=== PATIENT | male | born 1975 | race Caucasian/White ===

== ENCOUNTER 2020-04-21 08:57 | Outpatient (CLI) | payer OTHER, SELFPAY ==
--- NOTE | 2020-04-21 09:07 | FL_ITS ---
WS: [id number] DOUBLE CONTRAST UPPER GI EXAMINATION HISTORY: GASTRITIS, CHEST PAIN COMPARISON: None available. FLUOROSCOPY TIME: 1.5 minutes. Drug Clerk film reveals normal distribution of gas throughout the GI tract. No suspicious masses or calcif ications. Barium mixture traversed normally throughout the esophagus. No filling defects within the stomach. Du odenal bulb was normally distensible and pliable. No gastroesophageal reflux No hiatal hernia was demonstrated on this exam. FL/FL upper GI w air* [id number] IMPRESSION: Normal upper GI examination.
== END 2020-04-21 08:58 | disposition home or self-care (01) ==
LOC: RAD 09:00
PROVIDERS: PCP Family Medicine; Visit Provider Family Medicine
DX: K29.70 Gastritis, unspecified, without bleeding (principal); R07.89 Other chest pain
CPT/HCPCS: 74246

== ENCOUNTER 2020-05-09 06:55 | Outpatient (CLI) | payer OTHER, SELFPAY ==
--- NOTE | 2020-05-09 06:58 | USCV_ITS ---
Haroldo Ho Age: 45 Gender: M : 1975 Exam Date: 05/09/2020 07:21 Ordering Phys: Sony Kelly DO Technologist: ALBERT LIN Exam Location: [facility] [place] Indication: WELL ADULT EXAM HISTORY: Diameter (cm) AP x Transverse x Length Velocity (cm/s) Waveform Prox Aorta: 2.35 x 2.71 x 17.60 Mid Aorta: 1.67 x 1.85 x 77.00 Distal Aorta: 1.67 x 1.70 x 91.90 Right Iliac Prox: 1.13 x 1.02 x 59.10 Left Iliac Prox: 1.30 x 1.23 x 82.80 Stent Prox Landing x x Aneurysmal Sac Max x x Lt Lat Sac Dim Rt Lat Sac Dim Stent Dist Landing x x Right Iliac Stent x x Left Iliac Stent x x Right Renal Art Left Renal Art FINDINGS: CONCLUSIONS No evidence of abdominal aortic or bilateral iliac aneurysm. Geoffrey Marino MD (Electronically Signed) Final Date: 09 May 2020 12:46 S
== END 2020-05-09 06:56 | disposition home or self-care (01) ==
LOC: US 06:55
PROVIDERS: PCP Family Medicine; Visit Provider Family Medicine
DX: Z00.00 Encounter for general adult medical examination without abnormal findings (principal)
CPT/HCPCS: 76706

== ENCOUNTER → 2020-10-18 08:07 | Outpatient (BNVA) | payer OTHER, SELFPAY | PROVIDERS: PCP Family Medicine; Referring Provider Family Medicine; Visit Provider Internal Medicine | DX: M79.10 Myalgia, unspecified site (principal); R53.83 Other fatigue; R79.89 Other specified abnormal findings of blood chemistry; S09.90XA Unspecified injury of head, initial encounter | CPT/HCPCS: 99204 ==

== ENCOUNTER 2022-04-26 05:51 | Day surgery (SDC) | payer OTHER, SELFPAY ==
[2022-04-24 14:01] VITALS: BMI 37.7
[2022-04-26 06:09] VITALS: BP 138/116; PULSE 69; RESP 18; TEMP 36.2; O2SAT 98
[2022-04-26] MEDS: sodium chloride 0.9% 1,000 ML 30 ML IV (06:22)
--- NOTE | 2022-04-26 06:51 | W.PM.OPSUD ---
Surgery/Procedure H&P Update DATE OF PROCEDURE: April 26, 2022 DATE H&P PERFORMED: 04/16/22 H&P UPDATE INFORMATION: No changes to prior documentation PREOP DIAGNOSIS: GERD, Heartburn, belching, epigastric pain, high risk colon screening PLANNED PROCEDURE: Operation Date: 04/26/22 07:00 Proposed Procedures p EGD/colonoscopy [id number](Not Applicable) - Hitesh Arias MD s Colonoscopy(Not Applicable) - Hitesh Arias MD
--- NOTE | 2022-04-26 06:54 | ANES.PREANE2 ---
Documented by User: Chad Cade CRNA 04/26/22 06:59 Pre-Anesthetic Assessment Height/Weight: Height 1.83 m Weight 126.099 kg Temp Pulse Resp BP Pulse Ox 97.1 F L 69 18 138/116 98 04/26/22 06:09 04/26/22 06:09 04/26/22 06:09 04/26/22 06:09 04/26/22 06:09 Preop Diagnosis: GERD, Heartburn, belching, epigastric pain, high risk colon screening Operation Date: 04/26/22 07:00 Proposed Procedures p EGD/colonoscopy [id number](Not Applicable) - Hitesh Arias MD s Colonoscopy(Not Applicable) - Hitesh Arias MD Was Beta Mary Jane taken within 24 hours: N/A Was Clonidine taken within 24 hours: N/A Last intake: Intake Last Liquid Date 04/25/22 Last Liquid Time 22:30 Last Solid Date 04/24/22 Last Solid Time 21:00 Social Alcohol (2-3 beers a week) and No tobacco Exam alert, oriented x 3, clear to auscultation bilaterally and regular rate & rhythm Airway Submandibular: within normal limits Cervical ROM: within normal limits Mallampati: Class II Dentition: full Pulmonary None reported CV/HEM Hypertension None reported Hepatic None reported GI Gastroesophageal Reflux Disease Metabolic None reported Musc/skel Lower Back Pain Neuropsych Anxiety Anesthetic Plan ASA status: 2 Anesthesia: MAC Risk of > 500 ml blood loss (7ml/kg in children): No Medications/Allergies Home Medications Medication Instructions Recorded Confirmed Last Taken Type alprazolam 2 mg tablet 2 mg PO BID 10/18/20 04/26/22 04/26/22 History Allergies Allergy/AdvReac Type Severity Reaction Status Date / Time No Known Allergies Allergy Verified 04/24/22 13:57 Current Medications Generic Name Dose Route Start Last Admin Trade Name Freq PRN Reason Stop Dose Admin Sodium Chloride 1,000 mls @ 30 mls/hr 04/26/22 06:00 04/26/22 06:22 Sodium Chloride 0.9% IV 04/27/22 05:59 30 mls/hr .Q24H SON Administration PFSH Anesthesia Medical History Acute anxiety Surgical History No history of previous surgery Family History Mother Cancer Brother Diabetes Social History Smoking and tobacco status: former smoker Alcohol intake: current Alcohol intake frequency: holidays/special occasions only Lives independently: No Household members: spouse Marital status: Number of children: 3 Data Anesthesia Cardiac Studies: No Data to Display
[2022-04-26 07:35] VITALS: BP 123/83; PULSE 62; RESP 16; TEMP 36.1; O2SAT 97
[2022-04-26 08:08] VITALS: BP 125/90; PULSE 60; RESP 18; O2SAT 98
--- NOTE | 2022-04-26 09:58 | ANE.PACU2 ---
Inpatient post-anesthesia follow up: Airway intact: Yes Vital signs: Temperature 97.0 F Pulse Rate 60 Respiratory Rate 18 Blood Pressure 125/90 Pulse Oximetry 98 Oxygen Delivery Me thod Room Air Oxygen Flow Rate 3 Fraction of Inspir ed Oxygen Hydration adequate: Yes Nausea and vomiting: No Pain level: 1 Mental status: Baseline
[2022-04-29 10:06] LABS: H. Pylori / CLO Test Negative
== END 2022-04-26 08:10 | disposition home or self-care (01) ==
PROVIDERS: PCP Family Medicine; Visit Provider Surgery
PROC: 0DJ08ZZ Inspection of Upper Intestinal Tract, Via Natural or Artificial Opening Endoscopic (ICD-10-PCS; CPT 43235; principal; 2022-04-26 07:00)
PROC: 0DJD8ZZ Inspection of Lower Intestinal Tract, Via Natural or Artificial Opening Endoscopic (ICD-10-PCS; CPT 45378; 2022-04-26 07:00)
DX: Z12.11 Encounter for screening for malignant neoplasm of colon (principal); K21.9 Gastro-esophageal reflux disease without esophagitis; R14.2 Eructation; R10.13 Epigastric pain; D12.4 Benign neoplasm of descending colon; K57.30 Diverticulosis of large intestine without perforation or abscess without bleeding; K64.8 Other hemorrhoids; K29.70 Gastritis, unspecified, without bleeding; I10 Essential (primary) hypertension; F41.9 Anxiety disorder, unspecified; Z87.891 Personal history of nicotine dependence
CPT/HCPCS: 43239; 45385; 87077; 88305; J2704; J7030

== ENCOUNTER → 2023-05-21 09:05 | Outpatient (BNVA) | payer OTHER, SELFPAY | PROVIDERS: PCP Family Medicine; Visit Provider Family Medicine | DX: Z00.00 Encounter for general adult medical examination without abnormal findings (principal) | CPT/HCPCS: 80053; 80061 ==

== ENCOUNTER 2023-06-03 06:50 | Outpatient (CLI) | payer OTHER, SELFPAY ==
--- NOTE | 2023-06-03 07:00 | US_ITS ---
WS: [id number] ULTRASOUND ABDOMEN LIMITED CLINICAL INFORMATION: concern for gallbladder disease COMPARISON: None. FINDINGS: Liver Size: Enlarged Craniocaudal length: 17.7 cm. Echogenicity: Coarse with fatty infiltration Surface nodularity: None. Mass (size and location): None. Bile ducts Intrahepatic ducts: Normal. Common bile duct diameter: 0.3 cm. Gallbladder Normal. Gallstones: None. Gallbladder sludge: None. Gallbladder wall thickening: None. Pericholecystic fluid: None. Sonographic Lane sign: Absent. Pancreas Normal as visualized. Right kidney: Normal. Hydronephrosis: None. Size: 13.0 cm x 5.8 cm x 5.3 cm. Abdominal aorta and IVC Visualized portions are normal. Ascites: None. US/US abdomen limited [id number] IMPRESSION: 1. Hepatomegaly with Diffuse fatty infiltration liver. 2. Normal gallbladder. 3. No hydronephrosis in RIGHT kidney.
== END 2023-06-03 06:51 | disposition home or self-care (01) ==
PROVIDERS: PCP Family Medicine; Visit Provider Family Medicine
DX: R07.89 Other chest pain (principal); R14.2 Eructation; K76.0 Fatty (change of) liver, not elsewhere classified; R16.0 Hepatomegaly, not elsewhere classified
CPT/HCPCS: 76705

== ENCOUNTER 2023-07-14 07:52 | Outpatient (CLI) | payer OTHER, SELFPAY ==
--- NOTE | 2023-07-14 08:03 | XRR_ITS ---
PROCEDURE INFORMATION: Exam: XR Left Shoulder Exam date and time: 07/14/2023 8:06 AM Age: 48 years old Clinical indication: Patient HX: Left shoulder pain x 2 weeks. PT states he has a knot on shoulder. Shoulder catches TECHNIQUE: Imaging protocol: Radiologic exam of the left shoulder. Views: 2 or more views. Total images: 1 COMPARISON: No relevant prior studies available. FINDINGS: Bones/joints: Deformity distal left clavicle with superior osteophyte formation felt to represent sequela of remote trauma. No acute fracture nor subluxation. No osseous erosion nor periosteal reaction. Soft tissues: Normal. XR/XR shoulder LT min 2V* [id number] IMPRESSION: 1. Deformity distal left clavicle with superior osteophyte formation felt to represent sequela of remote trauma. 2. No acute osseous pathology.
== END 2023-07-14 07:53 | disposition home or self-care (01) ==
PROVIDERS: PCP Family Medicine; Visit Provider Family Medicine
DX: M25.712 Osteophyte, left shoulder (principal); M25.512 Pain in left shoulder
CPT/HCPCS: 73030

== ENCOUNTER → 2023-08-19 08:15 | Outpatient (BNVA) | payer OTHER, SELFPAY | PROVIDERS: PCP Family Medicine; Referring Provider Family Medicine; Visit Provider Student in an Organized Health Care Education/Training Program | DX: M75.42 Impingement syndrome of left shoulder | CPT/HCPCS: 73030 ==

== ENCOUNTER 2025-02-01 10:54 | Outpatient (CLI) | payer SELFPAY ==
--- NOTE | 2025-02-01 10:29 | ECG_ITS ---
[facility]: 2025-[facility]01 Pat Name: Haroldo Ho Department: Room: Gender: Male Director Telehealth: : 1975 Requested By: Roge Rivero Order Number: [id number] Maya MD: Bennett Soriano M.D. Interpretive Statements EXERCISE STRESS TEST EXERCISE DATA: The patient was exercised by Reji protocol. Baseline heart rate was 77 beats per minute. Baseline blood pressure was 128/93 millimeters of mercury. Maximal predicted heart rate was 173 beats per minute. Maximum heart rate achieved was 164 which was 94% of the maximum predicted heart rate. Maximum blood pressure was 202/96 millimeters of mercury. Total exercise time was 9 minutes and 30 seconds. Maximum METs achieved was 13.5. The reason for ending the test was maximal effort achieved. The patient complained of shortness of breath during the stress test, which then resolved at the end of the test. ELECTROCARDIOGRAM: BASELINE: Showed sinus rhythm, normal axis, no significant ST-T changes at the baseline noted. [] EXERCISE: At the peak exercise level, [] No significant ST-T changes suggestive of ischemia noted. [] RECOVERY: During the recovery period, heart rate dropped appropriately. No significant ST-T changes in the recovery suggestive of ischemia noted. [] CONCLUSION: 1. Exercise capacity is excellent 2. Heart rate response was appropriate 3. Blood pressure response was appropriate 4. Symptoms not suggestive of ischemia. 5. Stress test does not indicate ischemia Electronically Signed On 02-13-2025 02:07:04 CDT by Bennett Soriano M.D. [email or web address]
[2025-02-01 10:59] VITALS: BMI 37.3
[2025-02-01 11:30] VITALS: BP 141/92; PULSE 91
== END 2025-02-01 10:55 | disposition home or self-care (01) ==
LOC: CDL 10:55
PROVIDERS: PCP Electrodiagnostic Medicine; Visit Provider Electrodiagnostic Medicine
DX: R07.9 Chest pain, unspecified (principal)
CPT/HCPCS: 93017

== ENCOUNTER 2025-06-10 14:15 | Oncology outpatient (recurring) (ONCR) | payer SELFPAY ==
--- NOTE | 2025-06-10 14:15 | CTR_ITS ---
PROCEDURE INFORMATION: Exam: CT Chest With Contrast; Diagnostic Exam date and time: 06/10/2025 2:03 PM Age: 50 years old Clinical indication: Splenomegaly; Abnormal labs TECHNIQUE: Imaging protocol: Diagnostic computed tomography of the chest with contrast. Radiation optimization: All CT scans at this facility use at least one of these dose optimization techniques: automated exposure control; mA and/or kV adjustment per patient size (includes targeted exams where dose is matched to clinical indication); or iterative reconstruction. Contrast material: OMNI 350; Contrast volume: 100 ml; Contrast route: INTRAVENOUS (IV); COMPARISON: CR XR shoulder LT min 2V* [id number] 08/19/2023 8:32 AM RADIATION DOSE METRICS: Total DLP (mGy-cm): 1555.11 FINDINGS: Lungs: Unremarkable. No consolidation. No masses. Pleural spaces: Unremarkable. No pneumothorax. No pleural effusion. Heart: Unremarkable. No cardiomegaly. No pericardial effusion. Lymph nodes: Unremarkable. No enlarged lymph nodes. Vasculature: Unremarkable. No aortic aneurysm. Bones/joints: Unremarkable. No acute fracture. Soft tissues: Unremarkable. No evidence of malignancy. PROCEDURE INFORMATION: Exam: CT Abdomen And Pelvis With Contrast Exam date and time: 06/10/2025 2:03 PM Age: 50 years old Clinical indication: Splenomegaly; Abnormal labs TECHNIQUE: Imaging protocol: Computed tomography of the abdomen and pelvis with contrast. Radiation optimization: All CT scans at this facility use at least one of these dose optimization techniques: automated exposure control; mA and/or kV adjustment per patient size (includes targeted exams where dose is matched to clinical indication); or iterative reconstruction. Contrast material: OMNI 350; Contrast volume: 100 ml; Contrast route: INTRAVENOUS (IV); COMPARISON: abdomen limited [id number] 06/03/2023 7:03 AM RADIATION DOSE METRICS: Total DLP (mGy-cm): 1555.11 FINDINGS: Liver: Normal. No mass. Gallbladder and biliary ducts: Normal. No calcified stones. No ductal dilation. Pancreas: Normal. No ductal dilation. Spleen: Severe nonspecific splenomegaly. Craniocaudal dimension the spleen 28 cm. Inferior largest spleen extends below the left kidney. Adrenal glands: Normal. No mass. Kidneys and ureters: Normal. No hydronephrosis. Stomach and bowel: Unremarkable. No obstruction. No mucosal thickening. Appendix: No evidence of appendicitis. Intraperitoneal space: Unremarkable. No free air. No significant fluid collection. Vasculature: Unremarkable. No abdominal aortic aneurysm. Lymph nodes: Unremarkable. No enlarged lymph nodes. Urinary bladder: Unremarkable as visualized. Reproductive: Unremarkable as visualized. Bones/joints: Unremarkable. No acute fracture. Soft tissues: Unremarkable. CT/CT chest abdpel w/*[id number] IMPRESSION: No acute findings. IMPRESSION: 2. Severe nonspecific splenomegaly. The differential diagnosis is extensive and includes infectious, neoplastic, and infiltrative processes. Please correlate clinically. 3. No acute findings. Otherwise normal exam.
[2025-06-10] MEDS: iohexol 350 mg/mL 500 mL Btl (per mL) PO (14:17)
[2025-06-10] MEDS: iohexol 350 mg/mL 500 mL Btl (per mL) IV (14:17)
== END 2025-06-23 23:59 | disposition home or self-care (01) ==
LOC: RAD 06-11 00:01 → ONCMED 06-13 09:22
PROVIDERS: PCP Electrodiagnostic Medicine; Visit Provider Internal Medicine Medical Oncology
DX: Z53.9 Procedure and treatment not carried out, unspecified reason; R16.1 Splenomegaly, not elsewhere classified; D69.6 Thrombocytopenia, unspecified; D70.9 Neutropenia, unspecified
CPT/HCPCS: 71260; 74177

== ENCOUNTER 2025-07-22 07:57 | Oncology outpatient (recurring) (ONCR) | payer SELFPAY ==
[2025-07-18 08:32] LABS: Hematocrit 41.4 % (37-53); Hemoglobin 14.30 g/dL (11.27-16.99); Mean Corpuscular HGB Conc 34.5 g/dL (30-55); Mean Corpuscular Hemoglobin 32.3 pg (27-33); Mean Corpuscular Volume 93.5 fl (82-101); Nucleated Red Blood Cells % 0 %; Platelet Count 58 10^3/cmm (157-399); Red Blood Count 4.43 10^6/uL (3.85-5.65); White Blood Count 2.29 10^3/uL (3.29-11.43)
[2025-07-18 09:01] LABS: Alanine Aminotransferase 15 U/L (0-41); Albumin Level 4.3 g/dL (3.5-5.2); Alkaline Phosphatase 50 U/L (40-130); Blood Urea Nitrogen 12 mg/dL (6-20); Calcium 9.3 mg/dL (8.5-10.5); Carbon Dioxide 24 mmol/L (22-29); Chloride 102 mmol/L (98-107); Creatinine Clr Calc Pharmacy 149.7134; Globulin 3.5 g/dL (1.3-4.6); Glucose 114 mg/dL (65-115); Osmolality Calculated 289 mOsm/kg (285-295); Sodium 139 mmol/L (136-145); Total Protein 7.8 g/dL (6.6-8.7)
[2025-07-18 09:05] LABS: Anion Gap 17.9 (5-19); Aspartate Amino Transferase 30 U/L (0-40); Potassium 4.9 mmol/L (3.5-5.1)
[2025-07-18 09:41] LABS: Slide Review Slide Review Perform
[2025-07-18 11:29] VITALS: BP 134/94; PULSE 78; RESP 18; TEMP 36.8; O2SAT 93
[2025-07-18] MEDS: CLADRIBINE IV (11:33)
[2025-07-18] MEDS: SODIUM CHLORIDE 0.9% IV (11:33)
[2025-07-18 13:45] VITALS: BP 144/79; PULSE 86; RESP 17; TEMP 36.6; O2SAT 96
[2025-07-19 12:52] VITALS: BP 125/87; PULSE 82; RESP 17; TEMP 36.7; O2SAT 96
[2025-07-19] MEDS: SODIUM CHLORIDE 0.9% IV (13:06)
[2025-07-19] MEDS: CLADRIBINE IV (13:06)
[2025-07-19 15:24] VITALS: BP 138/93; PULSE 88; TEMP 36.7; O2SAT 96
[2025-07-20 09:09] LABS: Hematocrit 38.3 % (37-53); Hemoglobin 13.30 g/dL (11.27-16.99); Mean Corpuscular HGB Conc 34.7 g/dL (30-55); Mean Corpuscular Hemoglobin 32.1 pg (27-33); Mean Corpuscular Volume 92.5 fl (82-101); Platelet Count 48 10^3/cmm (157-399); Red Blood Count 4.14 10^6/uL (3.85-5.65); White Blood Count 1.25 10^3/uL (3.29-11.43)
[2025-07-20 09:29] LABS: Alanine Aminotransferase 16 U/L (0-41); Albumin Level 4.0 g/dL (3.5-5.2); Alkaline Phosphatase 52 U/L (40-130); Anion Gap 14.3 (5-19); Aspartate Amino Transferase 20 U/L (0-40); Blood Urea Nitrogen 10 mg/dL (6-20); Calcium 8.8 mg/dL (8.5-10.5); Carbon Dioxide 24 mmol/L (22-29); Chloride 97 mmol/L (98-107); Creatinine Clr Calc Pharmacy 133.0786; Globulin 3.6 g/dL (1.3-4.6); Glucose 135 mg/dL (65-115); Osmolality Calculated 273 mOsm/kg (285-295); Potassium 4.3 mmol/L (3.5-5.1); Sodium 131 mmol/L (136-145); Total Protein 7.6 g/dL (6.6-8.7)
[2025-07-20 09:47] LABS: Absolute Segmented Neutrophil 0.6 10/cmm (1.6-7.1); Atypical Lymphs 25.0 % (0-5); Band Neutrophils Absolute 0.0 10^3/cmm (0.0-1.2); Slide Review Slide Review Perform; Total Cells Counted 100 (0-100)
[2025-07-20] MEDS: CLADRIBINE IV (09:54)
[2025-07-20] MEDS: SODIUM CHLORIDE 0.9% IV (09:54)
[2025-07-20 10:09] VITALS: BP 131/84; PULSE 96; TEMP 36.2; O2SAT 96
[2025-07-20 12:17] VITALS: BP 110/71; PULSE 84; RESP 18; TEMP 36.4; O2SAT 97
[2025-07-21 09:02] VITALS: BP 117/80; PULSE 94; TEMP 36.6; O2SAT 99
[2025-07-21] MEDS: SODIUM CHLORIDE 0.9% IV (09:32)
[2025-07-21] MEDS: CLADRIBINE IV (09:32)
[2025-07-21 11:55] VITALS: BP 127/73; PULSE 92; RESP 17; TEMP 37.1; O2SAT 100
[2025-07-22 08:38] LABS: Hematocrit 37.2 % (37-53); Hemoglobin 12.50 g/dL (11.27-16.99); Mean Corpuscular HGB Conc 33.6 g/dL (30-55); Mean Corpuscular Hemoglobin 31.4 pg (27-33); Mean Corpuscular Volume 93.5 fl (82-101); Nucleated Red Blood Cells % 0 %; Platelet Count 55 10^3/cmm (157-399); Red Blood Count 3.98 10^6/uL (3.85-5.65)
[2025-07-22 08:41] VITALS: BP 121/80; PULSE 85; TEMP 36.3; O2SAT 97
[2025-07-22 08:57] LABS: Alanine Aminotransferase 16 U/L (0-41); Albumin Level 4.0 g/dL (3.5-5.2); Alkaline Phosphatase 50 U/L (40-130); Anion Gap 15.6 (5-19); Aspartate Amino Transferase 29 U/L (0-40); Blood Urea Nitrogen 16 mg/dL (6-20); Calcium 8.5 mg/dL (8.5-10.5); Carbon Dioxide 25 mmol/L (22-29); Chloride 96 mmol/L (98-107); Creatinine Clr Calc Pharmacy 119.7707; Globulin 3.9 g/dL (1.3-4.6); Glucose 138 mg/dL (65-115); Osmolality Calculated 277 mOsm/kg (285-295); Potassium 4.6 mmol/L (3.5-5.1); Sodium 132 mmol/L (136-145); Total Protein 7.9 g/dL (6.6-8.7)
[2025-07-22] MEDS: SODIUM CHLORIDE 0.9% IV (09:03)
[2025-07-22] MEDS: CLADRIBINE IV (09:03)
[2025-07-22 09:12] LABS: Slide Review Slide Review Perform
[2025-07-22 09:13] LABS: White Blood Count 0.37 10^3/uL (3.29-11.43)
[2025-07-22 11:55] VITALS: BP 120/78; PULSE 72; TEMP 35.7; O2SAT 97
== END 2025-07-24 23:59 | disposition home or self-care (01) ==
PROVIDERS: Internal Medicine Medical Oncology; Nurse Practitioner Family; PCP Electrodiagnostic Medicine; Visit Provider Internal Medicine
DX: Z51.11 Encounter for antineoplastic chemotherapy (principal); C91.40 Hairy cell leukemia not having achieved remission; Z79.899 Other long term (current) drug therapy
CPT/HCPCS: 36415; 80053; 85007; 85025; 96375; 96413; 96415; J7040; J7050; J9065; J9999; Q0162

== ENCOUNTER 2025-07-25 10:11 | Inpatient (IN) | payer SELFPAY ==
[2025-07-25 10:16] VITALS: BP 144/92; PULSE 106; RESP 16; TEMP 36.7; O2SAT 93; BMI 33.2
--- NOTE | 2025-07-25 10:19 | CTR_ITS ---
PROCEDURE INFORMATION: Exam: CT Abdomen And Pelvis With Contrast Exam date and time: 07/25/2025 10:32 AM Age: 50 years old Clinical indication: Abdominal pain; Localized; Lower; Leukemia; Additional info: Abd pain TECHNIQUE: Imaging protocol: Computed tomography of the abdomen and pelvis with contrast. Radiation optimization: All CT scans at this facility use at least one of these dose optimization techniques: automated exposure control; mA and/or kV adjustment per patient size (includes targeted exams where dose is matched to clinical indication); or iterative reconstruction. Contrast material: OMNI 350; Contrast volume: 100 ml; Contrast route: INTRAVENOUS (IV); COMPARISON: CT chest abdpel w/*[id number] 10/06/2025 14:03 RADIATION DOSE METRICS: Total DLP (mGy-cm): 1060.43 FINDINGS: Lungs: Lung bases are clear. Liver: Normal. No mass. Gallbladder and biliary ducts: Normal. No calcified stones. No ductal dilation. Pancreas: Normal. No ductal dilation. Spleen: Marked splenomegaly. The spleen measures 22.1 cm in length. Adrenal glands: Normal. No mass. Kidneys and ureters: Normal. No hydronephrosis. Stomach and bowel: Distal jejunum versus proximal ileal focal small bowel wall thickening in the mid abdomen with marked adjacent mesenteric inflammatory changes no evidence for adjacent air bubbles to suggest perforation. No obstruction. Mesenteric vessels appear well opacified as visualized. Appendix: Normal appendix. Intraperitoneal space: No free fluid in the pelvis. Vasculature: Minimal calcification of the abdominal aorta and left iliac artery. Lymph nodes: No enlarged lymphadenopathy. Urinary bladder: Unremarkable as visualized. Reproductive: Unremarkable as visualized. Bones/joints: Degenerative changes of the thoracolumbar spine with L4-L5 disc space narrowing. Soft tissues: Unremarkable. CT/CT abdomen pelvis w con* [id number] IMPRESSION: 1. Marked splenomegaly. 2. Distal jejunum versus proximal ileal focal small bowel wall thickening in the mid abdomen with marked adjacent mesenteric inflammatory changes no evidence for adjacent air bubbles to suggest perforation. No obstruction. Infiltrative process related to patient's underlying leukemia versus infectious or ischemic process is questioned. No rim enhancing abscess. 3. Disc space narrowing at L4-L5.
--- NOTE | 2025-07-25 10:21 | ED_ITS ---
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 States also had some nausea and vomiting he denies any diarrhea denies any dysuria he denies any worse improving factors Associated Symptoms: Reports nausea and vomiting; Denies chills, diarrhea, dysuria and fever(s) Related Data Home Medications ?Medication ?Instructions ?Recorded ?Confirmed cholecalciferol (vitamin D3) 25 25 mcg PO DAILY 07/25/25 mcg (1,000 unit) capsule cyanocobalamin (vitamin B-12) 1,000 mcg PO DAILY 06/0607/25/25 1,000 mcg capsule cyclobenzaprine 10 mg tablet 10 mg PO TID PRN Spasms 0 06/06/25 07/25/25 omeprazole 40 mg capsule,delayed 40 mg PO DAILY PRN Ac id Reflux 06/06/25 07/25/25 release levofloxacin 500 mg tablet 500 mg PO DAILY PRN fever/i nfection 07/25/25 07/25/25 sulfamethoxazole 800 1 tab PO .MON, WED, FRI infe ction 07/25/25 07/25/25 mg-trimethoprim 160 mg tablet prevention (Bactrim DS) Previous Rx's ?Medication ?Instructions ?Recorded alprazolam 0.5 mg tablet 0.5 mg PO BID PRN anxiety #3 0 tabs 02/13/24 fluconazole 100 mg tablet 100 mg PO DAILY fungal infec tion 07/13/25 prevention #90 tabs ondansetron HCl 4 mg tablet 4 mg PO Q6H PRN nausea and 07/13/25 vomiting #30 tabs prochlorperazine maleate 10 mg 10 mg PO Q4H PRN mild n ausea #30 07/13/25 tablet (Compazine) tabs valacyclovir 500 mg tablet 500 mg PO BID #60 tabs 06/25 oxycodone-acetaminophen 5 mg-325 1 tab PO TID PRN pain 7 days #21 07/19/25 mg tablet tabs Allergies Allergy/AdvReac Type Severity Reaction Status Date / Time No Known Allergies Allergy Verified 07/18/25 08:40 Review of Systems 2 Const: Denies: fever(s), chills, body aches or change in appetite ENMT: Denies: throat pain or dental pain Card: Denies: chest pain Resp: Denies: dyspnea GI: Reports: abdominal pain, nausea and vomiting; Denies: diarrhea : Denies: dysuria Musc: Denies: neck pain or back pain Skin/Breast: Denies: rash Neuro: Denies: headache(s) PFSH ED 2 PFSH: Medical History Anxiety Surgical History No history of previous surgery Family History Mother , colon cancer Cancer colon Brother Diabetes Father CAD (coronary artery disease) Social History Smoking and tobacco/nicotine status: never used tobacco/nicotine Alcohol intake: current Alcohol intake frequency: 0-2 Drinks per Day Substance/Drug Use: never Lives independently: Yes Household members: spouse and children Marital status: Number of children: 3 Current occupational status: employed Current occupation: [employer], construction driver Constance/Shinto: Confucianism Special constance needs: No Agree to transfusion: Yes Physical Exam 2 Const: COMMON NORMALS: no acute distress, patient oriented x3 and healthy appearing HENMT: COMMON NORMALS: normocephalic and atraumatic HEAD & SCALP: n ormocephalic and atraumatic Eye: COMMON NORMALS: conjunctivae normal CONJUNCTIVA: Yes conjunctivae normal Neck/C-Spine: COMMON NORMALS: full ROM and supple Chest: COMMONS NORMALS: normal inspection of the chest Resp: COMMON NORMALS: normal respiratory effort, No retractions, No use of accessory muscles and clear to auscultation bilaterally AUSCULTATION: clear to auscultation bilaterally Cardio: COMMON NORMALS: regular rate, regular rhythm and No murmurs present (Cardio) RATE: regular rate RHYTHM: regular rhythm GI: COMMON NORMALS: Normal to inspection, nondistended, normoactive bowel sounds present, Soft to palpation and no masses PALPATION: Yes Soft to palpation OTHER: lower abd tenderness Extremity: COMMON NORMALS: normal to inspection and full ROM Neuro: COMMON NORMALS: patient oriented x3, moves all extremities and no focal motor deficits Psych: COMMON NORMALS: mental status grossly normal, Normal thought process present and cooperative THOUGHT PROCESS: Normal thought process present Skin: COMMON NORMALS: no rashes or lesions noted and no wounds GENERAL SKIN EXAM: no rashes or lesions noted Course 2 Vital Signs: Vital signs: Vital Signs Temperature 98.0 F 07/25/25 10:16 Pulse Rate 100 07/25/25 12:03 Respiratory Rate 16 07/25/25 10:16 Blood Pressure 133/95 07/25/25 12:03 Pulse Oximetry 98 07/25/25 12:03 Oxygen Delivery Me thod Room Air 07/25/25 12:03 MDM - Abdominal Pain Medical Decision Making Patient presents here with abdominal pain he is also found to have some mild hyponatremia he is also leukopenic likely from his chemo. CT did show area of inflammation around the jejunum could be chemo induced but did speak to the hospitalist and surgeon on-call and will admit at this time for possible infectious origin we will start him on Cipro Flagyl his pain is improved here his lactate is normal no signs of ischemic bowel Medical Records I reviewed the patient's medical records. Lab Data I reviewed the patient's lab results. 07/25/25 10:33 07/25/25 10:33 Labs/Radiology: Radiology Impressions Abdomen/Pelvis CT 07/25/25 10:19 IMPRESSION: 1. Marked splenomegaly. 2. Distal jejunum versus proximal ileal focal small bowel wall thickening in the mid abdomen with marked adjacent mesenteric inflammatory changes no evidence for adjacent air bubbles to suggest perforation. No obstruction. Infiltrative process related to patient's underlying leukemia versus infectious or ischemic process is questioned. No rim enhancing abscess. 3. Disc space narrowing at L4-L5. ADDENDUM: 07/25/25 1110 COMMENT: THIS REPORT CONTAINS FINDINGS THAT MAY BE CRITICAL TO PATIENT CARE. The exam findings were verbally communicated by me to Yue Brumfield, physician's optometric assistant, via telephone conference at 11:08 AM CDT on 07/25/2025. The findings were acknowledged and understood. Laboratory Results WBC 0.33 10^3/uL (3.29-11.43) L* 07/25/25 10:33 RBC 4.41 10^6/uL (3.85-5.65) 07/25/25 10:33 Hgb 13.80 g/dL (11.27-16.99) 07/25/25 10:33 Hct 39.1 % (37-53) 07/25/25 10:33 MCV 88.7 fl (82-101) 07/25/25 10:33 MCH 31.3 pg (27-33) 07/25/25 10:33 MCHC 35.3 g/dL (30-55) 07/25/25 10:33 RDW 13.4 % (12.1-15.1) 07/25/25 10:33 Plt Count 63 10^3/cmm (157-399) L 07/25/25 10:33 MPV 9.8 fL (7.4-10.4) 07/25/25 10:33 Lymph % (Auto) Not Reportable 07/25/25 10:33 [place] % (Auto) Not Reportable 07/25/25 10:33 Neut # (Auto) Not Reportable 07/25/25 10:33 Lymph # (Auto) Not Reportable 07/25/25 10:33 [place] # (Auto) Not Reportable 07/25/25 10:33 Total Counted 50 (0-100) 07/25/25 10:33 Atypical Lymphs % 8.0 % (0-5) H 07/25/25 10:33 Segmented Neutrophils 12 % 07/25/25 10:33 Band Neutrophils Not Reportable 07/25/25 10:33 Absolute Lymphocytes 0.1 10^3/cmm (1.2-3.4) L 07/25/25 10:33 Lymphocytes (Manual) 28 % 07/25/25 10:33 Monocytes (Manual) 0.0 % 07/25/25 10:33 Absolute Monocytes 0.0 10^3/cmm (0.1-0.6) L 07/25/25 10:33 Eosinophils (Manual) 2 % 07/25/25 10:33 Absolute Eosinophils 0.0 10^3/cmm (0.0-0.7) 07/25/25 10:33 Basophils (Manual) 0.0 % 07/25/25 10:33 Absolute Basophils 0.0 10^3/cmm (0.0-0.2) 07/25/25 10:33 Platelet Estimate Decreased (Normal) 07/25/25 10:33 Sodium 127 mmol/L (136-145) L 07/25/25 10:33 Potassium 4.8 mmol/L (3.5-5.1) 07/25/25 10:33 Chloride 92 mmol/L (98-107) L 07/25/25 10:33 Carbon Dioxide 20 mmol/L (22-29) L 07/25/25 10:33 Anion Gap 19.8 (5-19) H 07/25/25 10:33 BUN 13 mg/dL (6-20) 07/25/25 10:33 Creatinine 0.9 mg/dL (0.7-1.2) 07/25/25 10:33 GFR Calculation 90.1 mL/min (90-130) 07/25/25 10:33 Glucose 138 mg/dL (65-115) H 07/25/25 10:33 Calculated Osmolality 266 mOsm/kg (285-295) L 07/25/25 10:33 Lactic Acid 0.9 mmol/L (0.5-2.2) 07/25/25 10:27 Calcium 8.8 mg/dL (8.5-10.5) 07/25/25 10:33 Total Bilirubin 2.0 mg/dL (0.15-1.2) H 07/25/25 10:33 AST 27 U/L (0-40) 07/25/25 10:33 ALT 21 U/L (0-41) 07/25/25 10:33 Alkaline Phosphatase 49 U/L (40-130) 07/25/25 10:33 Total Protein 7.9 g/dL (6.6-8.7) 07/25/25 10:33 Albumin 3.7 g/dL (3.5-5.2) 07/25/25 10:33 Globulin 4.2 g/dL (1.3-4.6) 07/25/25 10:33 Lipase 38 U/L (13-60) 07/25/25 10:33 Amorphous Sediment Not Reportable 07/25/25 12:01 All radiology interpretation(s) finalized by discharge Discharge Plan Discharge Patient Disposition: Admitted As Inpatient Clinical Impression: Abdominal pain, Hyponatremia, Leukopenia Condition: Stable Coding Level of Care Code ED Surveillance Analyst for Nini Stuart
[2025-07-25] MEDS: HYDROmorphone 0.5 MG/0.5 ML INJ 1 MG IVP ×3 (10:31→18:02)
[2025-07-25] MEDS: ondansetron 2 mg/ML SDV 2 mL 4 MG IVP ×2 (10:31→20:03)
[2025-07-25] MEDS: iohexol 350 mg/mL 500 mL Btl (per mL) IV (10:36)
[2025-07-25 10:41] LABS: Hematocrit 39.1 % (37-53); Hemoglobin 13.80 g/dL (11.27-16.99); Mean Corpuscular HGB Conc 35.3 g/dL (30-55); Mean Corpuscular Hemoglobin 31.3 pg (27-33); Mean Corpuscular Volume 88.7 fl (82-101); Platelet Count 63 10^3/cmm (157-399); Red Blood Count 4.41 10^6/uL (3.85-5.65)
[2025-07-25 10:58] LABS: Alanine Aminotransferase 21 U/L (0-41); Albumin Level 3.7 g/dL (3.5-5.2); Alkaline Phosphatase 49 U/L (40-130); Anion Gap 19.8 (5-19); Aspartate Amino Transferase 27 U/L (0-40); Blood Urea Nitrogen 13 mg/dL (6-20); Calcium 8.8 mg/dL (8.5-10.5); Carbon Dioxide 20 mmol/L (22-29); Chloride 92 mmol/L (98-107); Creatinine Clr Calc Pharmacy 129.2146; Globulin 4.2 g/dL (1.3-4.6); Glucose 138 mg/dL (65-115); Lipase 38 U/L (13-60); Osmolality Calculated 266 mOsm/kg (285-295); Potassium 4.8 mmol/L (3.5-5.1); Sodium 127 mmol/L (136-145); Total Protein 7.9 g/dL (6.6-8.7)
--- NOTE | 2025-07-25 11:12 | PC.PHAR ---
Addendum entered by Pooja Lee 07/25/25 11:16: Pt is taking his chemotherapy in the office. Original Note: Pt has orders for [place] 5-325mg tid prn and Tramadol 50mg tid prn from 07/19/25. They were not filled and new order for Percocet was filled. This is the current pain therapy. Pt has Metoprolol Tartrate 50mg bid from 05/06/25 90ds-pt states he stopped taking this medication.
[2025-07-25 11:29] LABS: Lactic Sepsis W/Reflex 0.9 mmol/L (0.5-2.2)
[2025-07-25 11:57] LABS: Slide Review Slide Review Perform
[2025-07-25 11:58] LABS: Absolute Segmented Neutrophil 0.0 10/cmm (1.6-7.1); Total Cells Counted 50 (0-100)
[2025-07-25 11:59] LABS: Atypical Lymphs 8.0 % (0-5)
[2025-07-25 12:03] VITALS: BP 133/95; PULSE 100; O2SAT 98
[2025-07-25 12:04] LABS: White Blood Count 0.33 10^3/uL (3.29-11.43)
[2025-07-25 12:07] LABS: Glucose Urine UA Negative (Normal); Nitrate Urine Negative (Negative)
[2025-07-25 12:12] LABS: Add Urine Microscopic? YES
[2025-07-25 12:48] LABS: Specific Gravity, Urine 1.063 (1.005-1.030)
[2025-07-25 12:53] VITALS: BP 143/104; PULSE 107; O2SAT 100
--- NOTE | 2025-07-25 12:53 | P.CONIM_ITS ---
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 He finished his therapy on Friday since then he has been having severe abdominal pain that has been worsening over time. Had diarrhea on Friday and today he has an episode of vomiting. Pain is in the mid abdomen and radiates to the back. Imaging done in the ER showed evidence of a short segment of a small bowel in the distal jejunum that appears extremely thick dilated and with mesenteric fat stranding but without evidence of perforation raising the concern of possible infectious, ischemic or neoplastic origin. In addition he is white count is 0.3, he has thrombocytopenia and hyponatremia. I was consulted for the findings. Review of Systems 2 General: Reports: 10 or more systems reviewed and unremarkable except in HPI and below Medications/Allergies Home Medications ?Medication ?Instructions ?Recorded ?Confirmed ?Last Taken ?Type alprazolam 0.5 mg tablet 0.5 mg PO BID PRN anxiety #3 0 tabs 02/13/24 07/25/25 Unknown Rx cholecalciferol (vitamin D3) 25 25 mcg PO DAILY 07/25/25 07/24/25 History mcg (1,000 unit) capsule cyanocobalamin (vitamin B-12) 1,000 mcg PO DAILY 06/0607/25/25 07/24/25 History 1,000 mcg capsule cyclobenzaprine 10 mg tablet 10 mg PO TID PRN Spasms 0 06/06/25 07/25/25 Unknown History omeprazole 40 mg capsule,delayed 40 mg PO DAILY PRN Ac id Reflux 06/06/25 07/25/25 Unknown History release fluconazole 100 mg tablet 100 mg PO DAILY fungal infec tion 07/13/25 07/25/25 07/24/25 Rx prevention #90 tabs ondansetron HCl 4 mg tablet 4 mg PO Q6H PRN nausea and 07/13/25 07/25/25 Unknown Rx vomiting #30 tabs prochlorperazine maleate 10 mg 10 mg PO Q4H PRN mild n ausea #30 07/13/25 07/25/25 07/25/25 Rx tablet (Compazine) tabs valacyclovir 500 mg tablet 500 mg PO BID #60 tabs 06/2507/25/25 07/24/25 Rx oxycodone-acetaminophen 5 mg-325 1 tab PO TID PRN pain 7 days #21 07/19/25 07/25/25 07/25/25 Rx mg tablet tabs levofloxacin 500 mg tablet 500 mg PO DAILY PRN fever/i nfection 07/25/25 07/25/25 Unknown History sulfamethoxazole 800 1 tab PO .MON, WED, FRI infe ction 07/25/25 07/25/25 07/22/25 History mg-trimethoprim 160 mg tablet prevention (Bactrim DS) Allergies Allergy/AdvReac Type Severity Reaction Status Date / Time No Known Allergies Allergy Verified 07/18/25 08:40 Current Medications Generic Name Dose Route Start Last Admin Trade Name Freq PRN Reason Stop Dose Admin Ciprofloxacin/Dextrose 400 mg in 200 mls @ 200 mls/hr 07/25/25 12:19 07/25/25 12:31 Cipro IV 07/25/25 13:18 200 mls/hr ONCE ONE Administration Protocol PFSH Acute 2 PFSH: Medical History (Updated 07/25/25 @ 13:01 by Selwyn Joaquin MD) Anxiety Surgical History No history of previous surgery Family History Mother , colon cancer Cancer colon Brother Diabetes Father CAD (coronary artery disease) Social History Smoking and tobacco/nicotine status: never used tobacco/nicotine Alcohol intake: current Alcohol intake frequency: 0-2 Drinks per Day Substance/Drug Use: never Lives independently: Yes Household members: spouse and children Marital status: Number of children: 3 Current occupational status: employed Current occupation: [employer], lease purchase truck driver Constance/Scientologist: Rastafarian Special constance needs: No Agree to transfusion: Yes Vitals/I&O/Wt Last Vital Signs Temp 98.0 F 07/25/25 10:16 Pulse 100 07/25/25 12:03 Resp 16 07/25/25 10:16 BP 133/95 09/01/25 12:03 Pulse Ox 98 07/25/25 12:03 O2 Del Method Room Air 07/25/25 12:03 Weight last 48 hrs Weight 245 lb Physical Exam 2 GI: OTHER: Abdominal exam is benign the abdomen is soft is somehow tender to palpation in the mid abdomen but no evidence of peritoneal signs or any other concerning findings. Data 07/25/25 10:33 07/25/25 10:33 A&P Assessment and plan 1. Thrombocytopenia: 2. Chemotherapy-induced enteritis: 3. Neutropenia: 4. Hairy cell leukemia not having achieved remission: Plan: After a complete history, physical examination and review of all available clinical data the following is my assessment. Patient presenting with abdominal pain in the setting of recent chemotherapy administration for leukemia. I have explained to the patient that the medication that he is receiving for chemotherapy is well-known for gastrointestinal side effects including mucositis and enteritis. I appreciate radiology's evaluation of the films, at this time there is low likelihood of disease progression into this testing as the patient had a recent CT of the abdomen and pelvis which showed no evidence of malignancy in the small bowel. Ischemic causes are also low in probability as he is young and has a normal lactate level. Due to thrombocytopenia and neutropenia and overall immunosuppression infectious etiology is not completely rule out although less likely due to only segmental compromise of the small bowel. I think the most likely cause of the patient's symptoms is chemotherapy induced enteritis/mucositis. At this point there is no need for an acute surgical intervention, I agree with admission for observation IV fluids, IV antibiotics and pain control. General surgery will continue to do serial abdominal exams, I would like the patient to stay on a clear liquid diet today and we will plan to advance as tolerated tomorrow if symptoms are improving. I have explained to the patient that there is a small likelihood of progression to bowel perforation and if that is the case he may require a laparotomy with bowel resection, he shows understanding agrees with the proposed plan. I defer all other management to medical team for additional expertise on the management of oncologic patients with neutropenia. General surgery will continue to follow - No need for acute surgical intervention - Agree with IV fluids, electrolyte replacement and IV antibiotics - Can Clear liquid diet today we will plan to advance him as tolerated starting tomorrow - Pain control as needed - General Surgery will provide serial abdominal exams while the patient is in house PDMP PDMP Reviewed: Not Reviewed Coding Level of Care Code 42240 Diagnoses Thrombocytopenia D69.6 Chemotherapy-induced enteritis K52.1; T45.1X5A Neutropenia D70.9 Hairy cell leukemia not having achieved remission C91.40
[2025-07-25] MEDS: metroNIDAZOLE IV 500 MG/100 ML PREMIX 100 MG IV ×2 (13:36→21:18)
[2025-07-25 13:37] VITALS: BP 128/92; PULSE 110; O2SAT 97
--- NOTE | 2025-07-25 13:47 | P.HP_ITS ---
Providers/Chief Complaint 2 Admitting Physician: Pk Alfaro DO Primary Care Provider: Roge Hernandez DO Chief Complaint: abd pain History of Present Illness Haroldo Ho is a 50 year old male with hairy cell leukemia who has been receiving chemotherapy, cladribine. He has had 5 rounds of therapy taking 1 pill a day for 5 days. His finished therapy this past Friday and has been having severe abdominal pain and worsening over that time. He has had 1 bout of diarrhea and had an episode of vomiting today. The pain is in the mid to lower abdomen and radiates to the back. Although he states the back pain he thought was from his splenomegaly and it has always felt like that since diagnosis. Imaging done in the emergency room shows a short segment of small bowel in the distal jejunum that appears thickened and dilated with mesenteric fat stranding but without evidence of perforation. Differential includes infectious ischemic or possibly neoplastic. Patient is neutropenic at 0.3 with unmeasurable differential. He has thrombocytopenia which is not new at 65. He also has hyponatremia which has been low on 07/20/2025 and 07/22/2025 but a new low of 127 today. Patient will be admitted for treatment of enteritis and management of hyponatremia. Review of Systems 2 Const: Reports: fever(s) (Reports temperature of 99.2. They did not start the as needed levofloxacin) and fatigue; Denies: chills Eyes: Denies: change in vision ENMT: Denies: throat pain or nasal congestion Card: Denies: chest pain or palpitations Resp: Denies: dyspnea or productive cough GI: Reports: abdominal pain, vomiting, diarrhea and change in stool character : Denies: difficulty urinating or dysuria Musc: Denies: extremity pain Skin/Breast: Denies: rash or lesions Neuro: Denies: headache(s) or dizziness Psych: Denies: anxiety or depression Kvng/Lymph: Denies: easy bruising or easy bleeding Medications/Allergies Home Medications ?Medication ?Instructions ?Recorded ?Confirmed ?Last Taken ?Type alprazolam 0.5 mg tablet 0.5 mg PO BID PRN anxiety #3 0 tabs 02/13/24 07/25/25 Unknown Rx cholecalciferol (vitamin D3) 25 25 mcg PO DAILY 07/25/25 07/24/25 History mcg (1,000 unit) capsule cyanocobalamin (vitamin B-12) 1,000 mcg PO DAILY 06/0607/25/25 07/24/25 History 1,000 mcg capsule cyclobenzaprine 10 mg tablet 10 mg PO TID PRN Spasms 0 06/06/25 07/25/25 Unknown History omeprazole 40 mg capsule,delayed 40 mg PO DAILY PRN Ac id Reflux 06/06/25 07/25/25 Unknown History release fluconazole 100 mg tablet 100 mg PO DAILY fungal infec tion 07/13/25 07/25/25 07/24/25 Rx prevention #90 tabs ondansetron HCl 4 mg tablet 4 mg PO Q6H PRN nausea and 07/13/25 07/25/25 Unknown Rx vomiting #30 tabs prochlorperazine maleate 10 mg 10 mg PO Q4H PRN mild n ausea #30 07/13/25 07/25/25 07/25/25 Rx tablet (Compazine) tabs valacyclovir 500 mg tablet 500 mg PO BID #60 tabs 06/2507/25/25 07/24/25 Rx oxycodone-acetaminophen 5 mg-325 1 tab PO TID PRN pain 7 days #21 07/19/25 07/25/25 07/25/25 Rx mg tablet tabs levofloxacin 500 mg tablet 500 mg PO DAILY PRN fever/i nfection 07/25/25 07/25/25 Unknown History sulfamethoxazole 800 1 tab PO .MON, WED, FRI infe ction 07/25/25 07/25/25 07/22/25 History mg-trimethoprim 160 mg tablet prevention (Bactrim DS) Allergies Allergy/AdvReac Type Severity Reaction Status Date / Time No Known Allergies Allergy Verified 07/18/25 08:40 PFSH Acute 2 PFSH: Medical History Anxiety Surgical History No history of previous surgery Family History Mother , colon cancer Cancer colon Brother Diabetes Father CAD (coronary artery disease) Social History Smoking and tobacco/nicotine status: never used tobacco/nicotine Alcohol intake: current Alcohol intake frequency: 0-2 Drinks per Day Substance/Drug Use: never Lives independently: Yes Household members: spouse and children Marital status: Number of children: 3 Current occupational status: employed Current occupation: [employer], solid waste truck driver Constance/Yarsani: Islam Special constance needs: No Agree to transfusion: Yes Vitals/I&O/Wt Last Vital Signs Temp 98.0 F 07/25/25 10:16 Pulse 110 H 07/25/25 13:37 Resp 16 07/25/25 10:16 BP 128/92 07/25/25 13:37 Pulse Ox 97 07/25/25 13:37 O2 Del Method Room Air 07/25/25 12:03 07/24/25 07/25/25 07/25/25 22:59 06:59 14:59 Intake Total 1200 / 1200 Balance 1200 / 1200 Weight last 48 hrs Weight 111.13 kg Physical Exam 2 Narrative: 50-year-old male who appears his stated age. His he is tall and slightly overweight. He is in mild acute distress due to abdominal pain at time of examination HEENT head is normocephalic atraumatic pupils equal reactive to light and accommodation extraocular muscles are intact there is no scleral icterus mucous membranes are slightly dry and pink no lesions or exudates noted Neck is supple no JVD carotid bruits or lymphadenopathy Heart is regular tachycardic normal S1-S2 without murmurs clicks gallops or rubs Lungs are clear to auscultation without wheezes rales or rhonchi Abdomen is soft very minimal tenderness in the suprapubic region. I do feel I can palpate splenomegaly no hepatomegaly normal active bowel sounds Extremities no clubbing cyanosis or edema Back no significant scoliosis or kyphosis noted Psych mood and affect are appropriate for illness Skin no lesions or rashes noted Data 07/25/25 10:33 07/25/25 10:33 A&P Assessment and plan 1. Enteritis: 2. Leukopenia: 3. Hyponatremia: 4. Abdominal pain: 5. High risk medication use: 6. 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 General surgery comments that the patient's oral chemotherapy causes mucositis and enteritis. In up-to-date I did not find that however it does state significant GI upset nausea vomiting and diarrhea. Appreciate general surgery assistance and follow-up exams Either way patient will be placed on clear liquids given IV fluids and pain management. I have consulted Dr. Mayfield to follow the patient tomorrow for further recommendations on chemotherapy his opinion on need for Neupogen and to discuss with family. For pain control he is placed on oral Dilaudid every 6 hours as needed and if there is breakthrough pain he can have the IV Dilaudid. Will continue Bactrim and acyclovir for other infection prevention while neutropenic PDMP PDMP Reviewed: Not Reviewed Attestations 2 Medical Necessity Statement*: Patient is admitted for abdominal pain and episode of vomiting. Possible medication side effect. Will give IV fluids and pain management and bowel rest. He is admitted in observation at this time. Coding Level of Care Code Acute Code for [facility] Diagnoses Enteritis K52.9 Leukopenia D72.819 Hyponatremia E87.1 Abdominal pain R10.9 High risk medication use Z79.899 Hairy cell leukemia not having achieved remission C91.40
[2025-07-25 14:14] VITALS: BMI 33.2
[2025-07-25] MEDS: dextrose 5%-sod chloride 0.45% 1,000 ML 100 ML IV (14:45)
[2025-07-25] MEDS: HYDROmorphone tab 2 MG TABLET 4 MG PO ×2 (14:59→22:28)
[2025-07-25 15:46] VITALS: BP 147/81; PULSE 108; TEMP 37.2; O2SAT 97
[2025-07-25 20:00] VITALS: BP 138/82; PULSE 110; RESP 17; TEMP 37.6; O2SAT 93
[2025-07-26] VITALS: BP 119/71; PULSE 113; RESP 17; TEMP 36.8; O2SAT 94
[2025-07-26] MEDS: dextrose 5%-sod chloride 0.45% 1,000 ML 100 ML IV ×2 (00:37→10:48)
[2025-07-26 03:16] LABS: Hematocrit 36.0 % (37-53); Hemoglobin 12.30 g/dL (11.27-16.99); Mean Corpuscular HGB Conc 34.2 g/dL (30-55); Mean Corpuscular Hemoglobin 31.2 pg (27-33); Mean Corpuscular Volume 91.4 fl (82-101); Nucleated Red Blood Cells % 0 %; Platelet Count 73 10^3/cmm (157-399); Red Blood Count 3.94 10^6/uL (3.85-5.65)
[2025-07-26 03:57] LABS: Anion Gap 14.7 (5-19); Blood Urea Nitrogen 11 mg/dL (6-20); Calcium 8.1 mg/dL (8.5-10.5); Carbon Dioxide 22 mmol/L (22-29); Chloride 92 mmol/L (98-107); Creatinine Clr Calc Pharmacy 129.2146; Glucose 120 mg/dL (65-115); Magnesium 1.9 mg/dL (1.7-2.3); Osmolality Calculated 259 mOsm/kg (285-295); Potassium 4.7 mmol/L (3.5-5.1); Sodium 124 mmol/L (136-145)
[2025-07-26 04:00] VITALS: BP 120/74; PULSE 101; RESP 17; TEMP 36.9; O2SAT 96
[2025-07-26 04:17] LABS: Slide Review Slide Review Perform
[2025-07-26 04:19] LABS: White Blood Count 0.35 10^3/uL (3.29-11.43)
[2025-07-26] MEDS: metroNIDAZOLE IV 500 MG/100 ML PREMIX 100 MG IV ×3 (04:33→20:44)
[2025-07-26] MEDS: HYDROmorphone tab 2 MG TABLET 4 MG PO ×3 (05:29→15:18)
[2025-07-26 07:44] VITALS: BP 111/79; PULSE 106; RESP 20; TEMP 36.8; O2SAT 96
--- NOTE | 2025-07-26 08:49 | P.PN_ITS ---
Subjective 2 Subjective: Overall good progression over the last 24 hours. He has remained stable, abdominal pain has remained colicky in nature. Tolerating clear liquid diet. Vitals/I&O/Wt Last Vital Signs Temp 98.2 F 07/26/25 07:44 Pulse 106 H 07/26/25 07:44 Resp 20 H 07/26/25 07:44 BP 111/79 07/26/25 07:44 Pulse Ox 96 07/26/25 07:44 O2 Del Method Room Air 07/26/25 07:44 07/25/25 07/26/25 07/26/25 22:59 06:59 14:59 Intake Total 200 / 1400 1286.667 / 2686.667 Output Total 200 / 200 200 / 400 Balance 0 / 1200 1086.667 / 2286.667 Weight last 48 hrs Weight 245 lb Weight 245 lb Weight 245 lb Physical Exam 2 GI: OTHER: Benign abdominal exam the abdomen is soft minimally tender nondistended there is decreased but present bowel sounds Data 07/26/25 02:00 07/26/25 02:00 A&P Assessment and plan 1. Enteritis: 2. Chemotherapy-induced enteritis: 3. Abdominal pain: 4. Thrombocytopenia: 5. Leukopenia: 6. Hairy cell leukemia not having achieved remission: Plan: This is a 50-year-old male with history of hairy cell leukemia who had a recent finish chemotherapy treatment and now presents with severe leukopenia and abdominal pain, imaging is consistent with possible segmental jejunal chemotherapy induced enteritis. No evidence of perforation. Progression has been okay he has tolerated clear liquid diet, abdominal pain has remained stable and abdominal exam is improved from yesterday. He is cleared to have a full liquid diet today and we will plan to advance to GI soft by tomorrow morning. No surgical intervention is indicated at this time we will continue to monitor abdominal examination if he is doing well by tomorrow he could transition to the outpatient setting from the surgical standpoint. All other management per medical team PDMP PDMP Reviewed: Not Reviewed Attestations 2 Medical Necessity Statement*: Per medical team Coding Level of Care Code Acute Code for [facility] Fwd Diagnoses Enteritis K52.9 Chemotherapy-induced enteritis K52.1; T45.1X5A Abdominal pain R10.9 Thrombocytopenia D69.6 Leukopenia D72.819 Hairy cell leukemia not having achieved remission C91.40
--- NOTE | 2025-07-26 09:10 | PC.CHAP ---
Pastoral Care Encounter/Spiritual Assessment Type of Contact [] Declined personnel consultant visit [] Patient/Family/Request visit [] Outpatient visit [] Follow-up visit [] Physician referral [] Code/Alert [] Routine visit [] Staff referral [] Actively dying [] Patient sleeping [] Family support [] [] Out of room [] Palliative care [] [] Receiving care in room [] Pre-surgical visit [] Trauma [] Long length of stay [] ICU visit [x] Other:Contact precautions. No visit. Relational/Emotional Strength [] Patient feels connected with others/family/visitors/staff [] Distress [] Loneliness/isolation [] Abandonment Spirituality of Patient [] Person of Constance [] Attends Faith of their Constance [] Believes in Prayer [] Reads Bible or Judaism materials [] There are Spiritual issues to be addressed Manager Of Disaster Recovery Interventions [] Prayer [] Active listening [] Non-anxious presence [] Spiritual/emotional support [] Crisis/trauma care [] Spiritual counseling [] Bereavement support [] Provided bereavement packet [] Provided Bible/devotional materials [] Provided toy/stuffed animal, coloring book to patient or family member [] Provided Communion [] Anointing/[place] [] Salvation [] Completed spiritual assessment [] Other: Impact on Illness or Injury [] Angry [] Fearful [] Anxious [] Often cries [] Exhaustion [] Unable to work [] Unable to attend sikh [] Unable to walk/stand [] Unable to read [] Unable to drive [] Unable to eat/drink [] Unable to sleep [] Unable to be with family [] Patient intubated [] Other: Summary Time spent with patient
[2025-07-26 10:23] LABS: Anion Gap 14.6 (5-19); Blood Urea Nitrogen 11 mg/dL (6-20); Calcium 8.2 mg/dL (8.5-10.5); Carbon Dioxide 23 mmol/L (22-29); Chloride 90 mmol/L (98-107); Creatinine Clr Calc Pharmacy 145.3664; Glucose 144 mg/dL (65-115); Osmolality Calculated 258 mOsm/kg (285-295); Potassium 4.6 mmol/L (3.5-5.1); Sodium 123 mmol/L (136-145)
[2025-07-26 10:48] LABS: Urine Random Sodium 30 mmol/L
[2025-07-26 11:39] VITALS: BP 147/90; PULSE 104; RESP 19; TEMP 36.8; O2SAT 98
[2025-07-26] MEDS: HYDROmorphone 0.5 MG/0.5 ML INJ 1 MG IVP (12:17)
[2025-07-26 14:14] LABS: Anion Gap 10.6 (5-19); Blood Urea Nitrogen 12 mg/dL (6-20); Calcium 7.9 mg/dL (8.5-10.5); Carbon Dioxide 25 mmol/L (22-29); Chloride 92 mmol/L (98-107); Creatinine Clr Calc Pharmacy 145.3664; Glucose 134 mg/dL (65-115); Osmolality Calculated 258 mOsm/kg (285-295); Potassium 4.6 mmol/L (3.5-5.1); Sodium 123 mmol/L (136-145)
--- NOTE | 2025-07-26 14:58 | P.PN_ITS ---
Subjective 2 Subjective: Seen this morning. Patient's blood counts reviewed. Neutropenic. Resting comfortably in bed. Requesting to go home. Sodium 123. Vitals/I&O/Wt Last Vital Signs Temp 98.3 F 07/26/25 11:39 Pulse 104 H 07/26/25 11:39 Resp 19 H 07/26/25 11:39 BP 147/90 07/26/25 11:39 Pulse Ox 98 07/26/25 11:39 O2 Del Method Room Air 07/26/25 11:39 07/25/25 07/26/25 07/26/25 22:59 06:59 14:59 Intake Total 200 / 1400 1286.667 / 2686.667 1800 / 1800 Output Total 200 / 200 200 / 400 Balance 0 / 1200 1086.667 / 2286.667 1800 / 1800 Weight last 48 hrs Weight 111.13 kg Weight 111.13 kg Weight 111.13 kg Physical Exam 2 Narrative: 50-year-old male who appears his stated age. HEENT head is normocephalic atraumatic Heart is regular tachycardic normal S1-S2 without murmurs clicks gallops or rubs Lungs are clear to auscultation without wheezes rales or rhonchi Abdomen is soft, nontender, splenomegaly present Extremities no clubbing cyanosis or edema Data 07/26/25 02:00 07/26/25 13:28 A&P Assessment and plan 1. Enteritis: 2. Leukopenia: 3. Hyponatremia: 4. Abdominal pain: 5. High risk medication use: 6. 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 General surgery comments that the patient's oral chemotherapy causes mucositis and enteritis. In up-to-date I did not find that however it does state significant GI upset nausea vomiting and diarrhea. Appreciate general surgery assistance and follow-up exams Either way patient will be placed on clear liquids given IV fluids and pain management. I have consulted Dr. Mayfield to follow the patient tomorrow for further recommendations on chemotherapy his opinion on need for Neupogen and to discuss with family. For pain control he is placed on oral Dilaudid every 6 hours as needed and if there is breakthrough pain he can have the IV Dilaudid. Will continue Bactrim and acyclovir for other infection prevention while neutropenic 07/26/2025 Continue Cipro and Flagyl Patient improving Stop D5 half-normal saline. Patient becoming hyponatremic. Will stop fluids and let him self-correct. Order Magic mouthwash. Discussed with Dr. Mayfield over the phone. He would like for us to order Neupogen 480 mcg daily x 3 days and continued hospitalization patient for next 3 days while on this medication and check counts daily. Complete 7 days of antibiotics. Continue valacyclovir at this time. PDMP PDMP Reviewed: Not Reviewed Attestations 2 Medical Necessity Statement*: Neutropenic, requires continued hospitalization. 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
[2025-07-26 16:00] VITALS: BP 168/83; PULSE 103; RESP 19; TEMP 36.8; O2SAT 95
[2025-07-26] MEDS: ondansetron 2 mg/ML SDV 2 mL 4 MG IVP (16:56)
[2025-07-26 19:46] LABS: Alanine Aminotransferase 33 U/L (0-41); Albumin Level 3.3 g/dL (3.5-5.2); Alkaline Phosphatase 40 U/L (40-130); Anion Gap 14.9 (5-19); Aspartate Amino Transferase 31 U/L (0-40); Blood Urea Nitrogen 11 mg/dL (6-20); Calcium 8.2 mg/dL (8.5-10.5); Carbon Dioxide 24 mmol/L (22-29); Chloride 92 mmol/L (98-107); Creatinine Clr Calc Pharmacy 166.1330; Globulin 4.1 g/dL (1.3-4.6); Glucose 123 mg/dL (65-115); Osmolality Calculated 263 mOsm/kg (285-295); Potassium 4.9 mmol/L (3.5-5.1); Sodium 126 mmol/L (136-145); Total Protein 7.4 g/dL (6.6-8.7)
[2025-07-26 19:56] VITALS: BP 129/83; PULSE 97; RESP 16; TEMP 36.8; O2SAT 97
[2025-07-26 23:05] LABS: Anion Gap 17.8 (5-19); Blood Urea Nitrogen 13 mg/dL (6-20); Calcium 8.2 mg/dL (8.5-10.5); Carbon Dioxide 21 mmol/L (22-29); Chloride 91 mmol/L (98-107); Creatinine Clr Calc Pharmacy 145.3664; Glucose 121 mg/dL (65-115); Osmolality Calculated 261 mOsm/kg (285-295); Potassium 4.8 mmol/L (3.5-5.1); Sodium 125 mmol/L (136-145)
[2025-07-27] VITALS: BP 118/70; PULSE 85; RESP 16; TEMP 36.9; O2SAT 99
[2025-07-27] MEDS: HYDROmorphone tab 2 MG TABLET 4 MG PO ×3 (00:05→13:33)
[2025-07-27 03:28] LABS: Anion Gap 15.7 (5-19); Blood Urea Nitrogen 14 mg/dL (6-20); Calcium 7.9 mg/dL (8.5-10.5); Carbon Dioxide 23 mmol/L (22-29); Chloride 93 mmol/L (98-107); Creatinine Clr Calc Pharmacy 166.1330; Glucose 116 mg/dL (65-115); Osmolality Calculated 265 mOsm/kg (285-295); Potassium 4.7 mmol/L (3.5-5.1); Sodium 127 mmol/L (136-145)
[2025-07-27 04:00] VITALS: BP 127/72; PULSE 74; RESP 16; TEMP 36.9; O2SAT 98
[2025-07-27] MEDS: metroNIDAZOLE IV 500 MG/100 ML PREMIX 100 MG IV ×3 (04:42→21:34)
[2025-07-27 05:59] LABS: Hematocrit 29.9 % (37-53); Hemoglobin 10.50 g/dL (11.27-16.99); Mean Corpuscular HGB Conc 35.1 g/dL (30-55); Mean Corpuscular Hemoglobin 32.1 pg (27-33); Mean Corpuscular Volume 91.4 fl (82-101); Nucleated Red Blood Cells % 0 %; Platelet Count 98 10^3/cmm (157-399); Red Blood Count 3.27 10^6/uL (3.85-5.65)
[2025-07-27 06:22] LABS: Anion Gap 15.7 (5-19); Blood Urea Nitrogen 14 mg/dL (6-20); Calcium 8.0 mg/dL (8.5-10.5); Carbon Dioxide 23 mmol/L (22-29); Chloride 95 mmol/L (98-107); Creatinine Clr Calc Pharmacy 166.1330; Glucose 115 mg/dL (65-115); Osmolality Calculated 269 mOsm/kg (285-295); Potassium 4.7 mmol/L (3.5-5.1); Sodium 129 mmol/L (136-145)
[2025-07-27 06:56] LABS: Slide Review Slide Review Perform; White Blood Count 0.41 10^3/uL (3.29-11.43)
[2025-07-27 07:20] VITALS: BP 114/74; PULSE 82; RESP 16; TEMP 36.5; O2SAT 97
--- NOTE | 2025-07-27 09:54 | PC.CHAP ---
Pastoral Care Encounter/Spiritual Assessment Type of Contact [] Declined scraper hand visit [] Patient/Family/Request visit [] Outpatient visit [] Follow-up visit [] Physician referral [] Code/Alert [] Routine visit [] Staff referral [] Actively dying [] Patient sleeping [] Family support [] [] Out of room [] Palliative care [] [] Receiving care in room [] Pre-surgical visit [] Trauma [] Long length of stay [] ICU visit [] Other:Contact precautions. No visit. Relational/Emotional Strength [] Patient feels connected with others/family/visitors/staff [] Distress [] Loneliness/isolation [] Abandonment Spirituality of Patient [] Person of Constance [] Attends Pentecostalism of their Constance [] Believes in Prayer [] Reads Bible or Mu-Ism materials [] There are Spiritual issues to be addressed Filing Writer Interventions [] Prayer [] Active listening [] Non-anxious presence [] Spiritual/emotional support [] Crisis/trauma care [] Spiritual counseling [] Bereavement support [] Provided bereavement packet [] Provided Bible/devotional materials [] Provided toy/stuffed animal, coloring book to patient or family member [] Provided Communion [] Anointing/[place] [] Salvation [] Completed spiritual assessment [] Other: Impact on Illness or Injury [] Angry [] Fearful [] Anxious [] Often cries [] Exhaustion [] Unable to work [] Unable to attend holiness [] Unable to walk/stand [] Unable to read [] Unable to drive [] Unable to eat/drink [] Unable to sleep [] Unable to be with family [] Patient intubated [] Other: Summary Time spent with patient
--- NOTE | 2025-07-27 11:02 | P.PN_ITS ---
Subjective 2 Subjective: Patient have an excellent progression over the last 24 hours, has been doing okay no significant abdominal pain, passing gas no bowel movement yet tolerating full liquid diet. Vitals/I&O/Wt Last Vital Signs Temp 97.7 F 07/27/25 07:20 Pulse 82 07/27/25 07:20 Resp 16 07/27/25 07:20 BP 114/74 07/27/25 07:20 Pulse Ox 97 07/27/25 07:20 O2 Del Method Room Air 07/27/25 07:20 07/26/25 07/27/25 07/27/25 22:59 06:59 14:59 Intake Total 955 / 2855 300 / 3155 500 / 500 Output Total 150 / 150 Balance 805 / 2705 300 / 3005 500 / 500 Weight last 48 hrs Weight 245 lb Weight 245 lb Weight 245 lb Physical Exam 2 GI: OTHER: Benign abdominal exam the abdomen is soft very minimally tender to palpation nondistended no peritoneal signs good bowel sounds this morning Data 07/27/25 05:40 07/27/25 05:40 A&P Assessment and plan 1. Abdominal pain: 2. Enteritis: Plan: Patient showing good progression from surgical standpoint. Will continue full liquid diet today as the patient expected to stay in the hospital for 3 days and this will allow for additional bowel rest before we advance to a GI soft diet. Will plan for advancement to GI soft early in the morning tomorrow and then patient will continue GI soft diet as outpatient. Will start him on a mild dose of MiraLAX to help with bowel movements at this point no indication for additional surgical intervention. All other management per medical team PDMP PDMP Reviewed: Not Reviewed Attestations 2 Medical Necessity Statement*: Per medical team Coding Level of Care Code Acute Code for [facility] Diagnoses Abdominal pain R10.9 Enteritis K52.9
[2025-07-27 11:10] LABS: Anion Gap 14.6 (5-19); Blood Urea Nitrogen 14 mg/dL (6-20); Calcium 7.9 mg/dL (8.5-10.5); Carbon Dioxide 24 mmol/L (22-29); Chloride 97 mmol/L (98-107); Creatinine Clr Calc Pharmacy 166.1330; Glucose 114 mg/dL (65-115); Osmolality Calculated 273 mOsm/kg (285-295); Potassium 4.6 mmol/L (3.5-5.1); Sodium 131 mmol/L (136-145)
[2025-07-27 12:34] VITALS: BP 113/74; PULSE 82; RESP 17; TEMP 37.3; O2SAT 97
--- NOTE | 2025-07-27 12:34 | P.PN_ITS ---
Subjective 2 Subjective: Patient feels constipated. Platelet count 98,000 White count 0.41. He is on Neupogen at this time. Vitals/I&O/Wt Last Vital Signs Temp 97.7 F 07/27/25 07:20 Pulse 82 07/27/25 07:20 Resp 16 07/27/25 07:20 BP 114/74 07/27/25 07:20 Pulse Ox 97 07/27/25 07:20 O2 Del Method Room Air 07/27/25 07:20 07/26/25 07/27/25 07/27/25 22:59 06:59 14:59 Intake Total 955 / 2855 300 / 3155 500 / 500 Output Total 150 / 150 Balance 805 / 2705 300 / 3005 500 / 500 Weight last 48 hrs Weight 111.13 kg Weight 111.13 kg Weight 111.13 kg Physical Exam 2 Narrative: 50-year-old male who appears his stated age. HEENT head is normocephalic atraumatic Heart is regular tachycardic normal S1-S2 without murmurs clicks gallops or rubs Lungs are clear to auscultation without wheezes rales or rhonchi Abdomen is soft, nontender, splenomegaly present Extremities no edema Data 07/27/25 05:40 07/27/25 10:44 A&P Assessment and plan 1. Enteritis: 2. Leukopenia: 3. Hyponatremia: 4. Abdominal pain: 5. High risk medication use: 6. 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 General surgery comments that the patient's oral chemotherapy causes mucositis and enteritis. In up-to-date I did not find that however it does state significant GI upset nausea vomiting and diarrhea. Appreciate general surgery assistance and follow-up exams Either way patient will be placed on clear liquids given IV fluids and pain management. I have consulted Dr. Mayfield to follow the patient tomorrow for further recommendations on chemotherapy his opinion on need for Neupogen and to discuss with family. For pain control he is placed on oral Dilaudid every 6 hours as needed and if there is breakthrough pain he can have the IV Dilaudid. Will continue Bactrim and acyclovir for other infection prevention while neutropenic 07/26/2025 Continue Cipro and Flagyl Patient improving Stop D5 half-normal saline. Patient becoming hyponatremic. Will stop fluids and let him self-correct. Order Magic mouthwash. Discussed with Dr. Mayfield over the phone. He would like for us to order Neupogen 480 mcg daily x 3 days and continued hospitalization patient for next 3 days while on this medication and check counts daily. Complete 7 days of antibiotics. Continue valacyclovir at this time. 07/27/2025 Continue Cipro Flagyl Advance diet to GI soft possibly up in the morning. Discussed with Dr. Medina over the phone. Stop D5 half-normal saline. Sodium self correcting. Sodium 131 this morning. Discussed with Dr. Mayfield over the phone yesterday. Continue Neupogen 480 daily x 3 days total. MiraLAX started by general surgery. Docusate senna added. Refrain from using lactulose per surgery. Continue valacyclovir. PDMP PDMP Reviewed: Not Reviewed Attestations 2 Medical Necessity Statement*: Continue current treatment. 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
[2025-07-27] MEDS: ondansetron 2 mg/ML SDV 2 mL 4 MG IVP ×2 (13:35→22:37)
[2025-07-27 14:50] LABS: Anion Gap 16.2 (5-19); Blood Urea Nitrogen 15 mg/dL (6-20); Calcium 8.3 mg/dL (8.5-10.5); Carbon Dioxide 24 mmol/L (22-29); Chloride 92 mmol/L (98-107); Creatinine Clr Calc Pharmacy 166.1330; Glucose 114 mg/dL (65-115); Osmolality Calculated 268 mOsm/kg (285-295); Potassium 4.2 mmol/L (3.5-5.1); Sodium 128 mmol/L (136-145)
[2025-07-27 17:16] VITALS: BP 127/81; PULSE 86; RESP 17; TEMP 37; O2SAT 97
[2025-07-27 20:00] VITALS: BP 124/83; PULSE 88; RESP 16; TEMP 36.8; O2SAT 100
[2025-07-28] VITALS: BP 125/76; PULSE 84; RESP 16; TEMP 36.8; O2SAT 99
[2025-07-28 04:00] VITALS: BP 118/63; PULSE 74; RESP 16; TEMP 36.9; O2SAT 98
[2025-07-28 04:22] LABS: Hematocrit 31.0 % (37-53); Hemoglobin 10.70 g/dL (11.27-16.99); Mean Corpuscular HGB Conc 34.5 g/dL (30-55); Mean Corpuscular Hemoglobin 31.2 pg (27-33); Mean Corpuscular Volume 90.4 fl (82-101); Nucleated Red Blood Cells % 0 %; Platelet Count 118 10^3/cmm (157-399); Red Blood Count 3.43 10^6/uL (3.85-5.65)
[2025-07-28] MEDS: metroNIDAZOLE IV 500 MG/100 ML PREMIX 100 MG IV ×2 (04:41→11:43)
[2025-07-28 04:47] LABS: Anion Gap 16.4 (5-19); Blood Urea Nitrogen 12 mg/dL (6-20); Calcium 8.1 mg/dL (8.5-10.5); Carbon Dioxide 21 mmol/L (22-29); Chloride 97 mmol/L (98-107); Creatinine Clr Calc Pharmacy 193.8219; Glucose 113 mg/dL (65-115); Osmolality Calculated 271 mOsm/kg (285-295); Potassium 4.4 mmol/L (3.5-5.1); Sodium 130 mmol/L (136-145)
[2025-07-28 05:22] LABS: Slide Review Slide Review Perform
[2025-07-28 05:25] LABS: White Blood Count 0.41 10^3/uL (3.29-11.43)
[2025-07-28 08:00] VITALS: BP 116/77; PULSE 79; RESP 16; TEMP 36.6; O2SAT 99
[2025-07-28] MEDS: ondansetron 2 mg/ML SDV 2 mL 4 MG IVP ×2 (10:32→15:31)
--- NOTE | 2025-07-28 10:35 | PM.PN ---
Subjective Subjective: Excellent progression from the surgical standpoint he has tolerated diet minimal abdominal pain had a bowel movement this morning. Vitals/I&O/Wt Last Vital Signs Temp 97.8 F 07/28/25 08:00 Pulse 79 07/28/25 08:00 Resp 16 07/28/25 08:00 BP 116/77 07/28/25 08:00 Pulse Ox 99 07/28/25 08:00 O2 Del Method Room Air 07/28/25 08:00 07/27/25 07/28/25 07/28/25 22:59 06:59 14:59 Intake Total 340 / 1380 300 / 1680 100 / 100 Balance 340 / 1380 300 / 1680 100 / 100 Weight last 48 hrs Weight 244 lb Weight 245 lb Physical Exam GI: OTHER: Benign abdominal exam abdomen is soft minimally tender to palpation nondistended good bowel sounds Data 07/28/25 03:13 07/28/25 03:13 A&P Assessment and plan 1. Chemotherapy-induced enteritis: Plan: Patient is showing very good progression from the surgical standpoint. Should continue GI soft diet and keep GI soft diet for about 2 weeks before attempting returning to general diet. He most likely will have persistent soft bowel movements at least for the next 48 to 72 hours until the inflammation the small bowel completely subsides. No additional interventions indicated from the general surgery standpoint. All other management per medical team. Patient can follow-up with oncology provider as outpatient, follow-up with general surgery as needed. PDMP PDMP Reviewed: Not Reviewed Attestations Medical Necessity Statement*: Per medical Coding Level of Care Code Acute Code for [facility] Fwd Diagnoses Chemotherapy-induced enteritis K52.1; T45.1X5A
--- NOTE | 2025-07-28 11:47 | PM.DCS ---
Discharge Providers Date of Admission: 07/26/25 16:31 Date of Discharge: July 28, 2025 Attending Provider at Admission: Pk Alfaro DO Attending Provider at Discharge: Ashley Brown MD Primary Care Provider: Roge Hernandez DO Diagnoses at Discharge Discharge Diagnosis 1. Chemotherapy-induced enteritis: Reason for Visit Reason for Visit: abd pain Hospital Course Hospital Course Recent diagnosis of hairy cell leukemia with recent chemotherapy presented to the hospital with abdominal pain that is worsening over time. Had diarrhea and episode of vomiting as well. Was also hyponatremic on admission. Admitted for enteritis and remained on IV antibiotics during hospital stay. Treated with nutrition was ordered per oncology recommendations. Oncology help comanage patient over the phone. Patient's cell counts did improve however did not normalize yet. After clearance from oncology patient was discharged home with oral antibiotics to complete course. Patient will continue has antivirals and provide of antibiotics after discharge per instructions given. General surgery did consult on the patient during hospital stay. Diet was slowly advanced per general surgery recommendations. Patient to follow-up with oncology as an outpatient. Patient tolerating diet at time of discharge. Physical Exam Narrative: 50-year-old male who appears his stated age. HEENT head is normocephalic atraumatic Heart is regular tachycardic normal S1-S2 without murmurs clicks gallops or rubs Lungs are clear to auscultation without wheezes rales or rhonchi Abdomen is soft, nontender, splenomegaly present Extremities no edema Discharge Data Studies Completed and Pending Completed Studies During Hospitalization Category Date Time Status CT abdomen pelvis w con* [id number] Stat Cat Scan 07/25/25 10:19 Completed Pending at discharge Category Date Time Status Osmolality Serum Stat Lab 07/26/25 09:51 Received Osmolality Urine Stat Lab 07/26/25 10:15 Received Radiology Impressions Abdomen/Pelvis CT 07/25/25 10:19 IMPRESSION: 1. Marked splenomegaly. 2. Distal jejunum versus proximal ileal focal small bowel wall thickening in the mid abdomen with marked adjacent mesenteric inflammatory changes no evidence for adjacent air bubbles to suggest perforation. No obstruction. Infiltrative process related to patient's underlying leukemia versus infectious or ischemic process is questioned. No rim enhancing abscess. 3. Disc space narrowing at L4-L5. ADDENDUM: 07/25/25 1110 COMMENT: THIS REPORT CONTAINS FINDINGS THAT MAY BE CRITICAL TO PATIENT CARE. The exam findings were verbally communicated by me to Yue Brumfield, physician's inventory assistant, via telephone conference at 11:08 AM CDT on 07/25/2025. The findings were acknowledged and understood. Laboratory Results WBC 0.41 10^3/uL (3.29-11.43) L* 07/28/25 03:13 RBC 3.43 10^6/uL (3.85-5.65) L 07/28/25 03:13 Hgb 10.70 g/dL (11.27-16.99) L 07/28/25 03:13 Hct 31.0 % (37-53) L 07/28/25 03:13 MCV 90.4 fl (82-101) 07/28/25 03:13 MCH 31.2 pg (27-33) 07/28/25 03:13 MCHC 34.5 g/dL (30-55) 07/28/25 03:13 RDW 13.2 % (12.1-15.1) 07/28/25 03:13 Plt Count 118 10^3/cmm (157-399) L 07/28/25 03:13 MPV 9.6 fL (7.4-10.4) 07/28/25 03:13 Neut % (Auto) 48.8 % 07/28/25 03:13 Lymph % (Auto) 36.6 % 07/28/25 03:13 [place] % (Auto) 2.4 % 07/28/25 03:13 Eos % (Auto) 2.4 % 07/28/25 03:13 Baso % (Auto) 0.0 % 07/28/25 03:13 Neut # (Auto) 0.20 10^3/uL (1.8-7.7) L* 07/28/25 03:13 Lymph # (Auto) 0.2 10^3/uL (0.8-4.8) L 07/28/25 03:13 [place] # (Auto) 0.0 10^3/uL (0.2-0.9) L 07/28/25 03:13 Eos # (Auto) 0.0 10^3/uL (0.0-0.8) 07/28/25 03:13 Baso # (Auto) 0.0 10^3/uL (0.0-0.1) 07/28/25 03:13 Nucleated RBC % (auto) 0 % 07/28/25 03:13 Total Counted 50 (0-100) 07/25/25 10:33 Atypical Lymphs % 8.0 % (0-5) H 07/25/25 10:33 Segmented Neutrophils 12 % 07/25/25 10:33 Band Neutrophils Not Reportable 07/25/25 10:33 Absolute Lymphocytes 0.1 10^3/cmm (1.2-3.4) L 07/25/25 10:33 Lymphocytes (Manual) 28 % 07/25/25 10:33 Monocytes (Manual) 0.0 % 07/25/25 10:33 Absolute Monocytes 0.0 10^3/cmm (0.1-0.6) L 07/25/25 10:33 Eosinophils (Manual) 2 % 07/25/25 10:33 Absolute Eosinophils 0.0 10^3/cmm (0.0-0.7) 07/25/25 10:33 Basophils (Manual) 0.0 % 07/25/25 10:33 Absolute Basophils 0.0 10^3/cmm (0.0-0.2) 07/25/25 10:33 Nucleated RBCs # 0.0 /100WBC 07/28/25 03:13 Platelet Estimate Decreased (Normal) 07/25/25 10:33 Sodium 130 mmol/L (136-145) L 07/28/25 03:13 Potassium 4.4 mmol/L (3.5-5.1) 07/28/25 03:13 Chloride 97 mmol/L (98-107) L 07/28/25 03:13 Carbon Dioxide 21 mmol/L (22-29) L 07/28/25 03:13 Anion Gap 16.4 (5-19) 07/28/25 03:13 BUN 12 mg/dL (6-20) 07/28/25 03:13 Creatinine 0.6 mg/dL (0.7-1.2) L 07/28/25 03:13 GFR Calculation 143.8 mL/min (90-130) H 07/28/25 03:13 Glucose 113 mg/dL (65-115) 07/28/25 03:13 Calculated Osmolality 271 mOsm/kg (285-295) L 07/28/25 03:13 Lactic Acid 0.9 mmol/L (0.5-2.2) 07/25/25 10:27 Calcium 8.1 mg/dL (8.5-10.5) L 07/28/25 03:13 Phosphorus 2.4 mg/dL (2.5-4.5) L 07/26/25 02:00 Magnesium 1.9 mg/dL (1.7-2.3) 07/26/25 02:00 Total Bilirubin 2.6 mg/dL (0.15-1.2) H 07/26/25 19:09 AST 31 U/L (0-40) 07/26/25 19:09 ALT 33 U/L (0-41) 07/26/25 19:09 Alkaline Phosphatase 40 U/L (40-130) 07/26/25 19:09 Total Protein 7.4 g/dL (6.6-8.7) 07/26/25 19:09 Albumin 3.3 g/dL (3.5-5.2) L 07/26/25 19:09 Globulin 4.1 g/dL (1.3-4.6) 07/26/25 19:09 Lipase 38 U/L (13-60) 07/25/25 10:33 Urine Color Yellow (Yellow) 07/25/25 12:01 Urine Appearance Clear (CLEAR) 07/25/25 12:01 Urine pH 6.5 (5-7) 07/25/25 12:01 Ur Specific [place] 1.063 (1.005-1.030) H 07/25/25 12:01 Urine Protein 2+ (Negative) A 07/25/25 12:01 Urine Glucose (UA) Negative (Normal) 07/25/25 12:01 Urine Ketones Negative (Negative) 07/25/25 12:01 Urine Blood 1+ (Negative) A 07/25/25 12:01 Urine Nitrate Negative (Negative) 07/25/25 12:01 Urine Bilirubin Negative (Negative) 07/25/25 12:01 Urine Urobilinogen 1.0 mg/dL (Negative) 07/25/25 12:01 Ur Leukocyte Esterase Negative (Negative) 07/25/25 12:01 Urine RBC 3-5 /hpf (0-2) 07/25/25 12:01 Urine WBC 0-5 /hpf (0-5) 07/25/25 12:01 Ur Squamous Epith Cells 0-5 /hpf (0-5) 07/25/25 12:01 Amorphous Sediment Not Reportable 07/25/25 12:01 Urine Bacteria None seen /hpf (NONE) 07/25/25 12:01 Hyaline Casts 0-4 /lpf H 07/25/25 12:01 Ur Random Sodium 30 mmol/L 07/26/25 10:15 Vitals Last Vital Signs Temp 97.8 F 07/28/25 08:00 Pulse 79 07/28/25 08:00 Resp 16 07/28/25 08:00 BP 116/77 07/28/25 08:00 Pulse Ox 99 07/28/25 08:00 O2 Del Method Room Air 07/28/25 08:00 Discharge Plan Discharge Patient Disposition: Home Condition: Stable Prescriptions: New polyethylene glycol 3350 17 gram Powder In Packet 17 g PO DAILY Qty: 10 0RF docusate sodium 100 mg Capsule 100 mg PO BID@0500,1700 Qty: 14 0RF Continued cyclobenzaprine 10 mg tablet 10 mg PO TID PRN (Reason: Spasms) omeprazole 40 mg capsule,delayed release(DR/EC) 40 mg PO DAILY PRN (Reason: Acid Reflux) cholecalciferol (vitamin D3) 25 mcg (1,000 unit) capsule 25 mcg PO DAILY cyanocobalamin (vitamin B-12) 1,000 mcg capsule 1,000 mcg PO DAILY alprazolam 0.5 mg tablet 0.5 mg PO BID PRN (Reason: anxiety) Qty: 30 0RF fluconazole 100 mg tablet 100 mg PO DAILY Qty: 90 2RF ondansetron HCl 4 mg tablet 4 mg PO Q6H PRN (Reason: nausea and vomiting) Qty: 30 3RF prochlorperazine maleate [Compazine] 10 mg tablet 10 mg PO Q4H PRN (Reason: mild nausea) Qty: 30 3RF valacyclovir 500 mg tablet 500 mg PO BID Qty: 60 5RF Rx Instructions: Continue 3 months post treatment for prevention of viral infection oxycodone-acetaminophen 5-325 mg tablet 1 tab PO TID PRN (Reason: pain) 5 Days Qty: 15 0RF Held sulfamethoxazole-trimethoprim [Bactrim DS] 800-160 mg tablet 1 tab PO .MON, WED, FRI Hold Instructions: hold while completing ciprofloxacin and metronidazole No Action tramadol 50 mg tablet 50 mg PO Q8H PRN (Reason: pain) Qty: 60 0RF Discharge Order = DC NOW: Discharge Order (Routine); Ordered 07/28/25 Ordered By: Ashley Brown Referrals: Selwyn Joaquin MD [Physician, General Surgery] - 08/09/25 3:20 am Danny Mayfield MD [Hospitalist, Oncology] - 4-7 days Referral Note: We have notified your physician's clinic of the need for a follow-up appointment to be scheduled. If you have not heard from them within the next 2 business days, please call them directly. Roge Hernandez DO [Primary Care Provider, [facility]] - 08/04/25 8:30 am Discharge Diet: GI Soft Discharge Activity: Resume usual activity Patient Instructions: Ciprofloxacin (By mouth), Metronidazole (By mouth), Polyethylene Glycol 3350 (By mouth), Neutropenia (DC), Opioid Safety, Patient Portal & Horacio Instructions Discharge Attestations Time Spent in Discharge Care*: less than 30 min Quality Metrics Clinical Quality Measures [ No reported AMI, CVA or VTE this stay] Coding Level of Care Code Acute Code for [facility] Fwd Diagnoses Chemotherapy-induced enteritis K52.1; T45.1X5A
[2025-07-28 11:48] VITALS: BP 132/87; PULSE 81; RESP 16; TEMP 36.6; O2SAT 100
[2025-07-28 15:10] VITALS: BP 136/79; PULSE 70; RESP 15; TEMP 36.3; O2SAT 100
[2025-07-28 15:44] VITALS: BP 136/79; PULSE 70; O2SAT 100
== END 2025-07-28 15:49 | disposition home or self-care (01) | DRG 809 ==
LOC: ER 12:28 → MEDSURG 13:19
PROVIDERS: Admitting Provider Internal Medicine; Emergency Provider Emergency Medicine; PCP Electrodiagnostic Medicine; Visit Provider Internal Medicine
DX: D70.9 Neutropenia, unspecified (principal); C91.40 Hairy cell leukemia not having achieved remission; K52.1 Toxic gastroenteritis and colitis; E87.1 Hypo-osmolality and hyponatremia; T45.1X5A Adverse effect of antineoplastic and immunosuppressive drugs, initial encounter; Y92.9 Unspecified place or not applicable; D69.6 Thrombocytopenia, unspecified; F41.9 Anxiety disorder, unspecified
CPT/HCPCS: 36415; 74177; 80048; 80053; 81001; 83605; 83690; 83735; 83930; 83935; 84100; 84300; 85007; 85025; 96365; 96367; 96372; 96375; 99285; G0378; J0744; J1171; J1650; J2405; J3490; J7030; J7040; J7799; J9999; Q0164; Q5101

== ENCOUNTER 2025-08-15 08:45 | Oncology outpatient (recurring) (ONCR) | payer SELFPAY ==
[2025-08-01 08:37] LABS: Hematocrit 41.5 % (37-53); Hemoglobin 14.60 g/dL (11.27-16.99); Mean Corpuscular HGB Conc 35.2 g/dL (30-55); Mean Corpuscular Hemoglobin 31.5 pg (27-33); Mean Corpuscular Volume 89.6 fl (82-101); Nucleated Red Blood Cells % 0 %; Platelet Count 243 10^3/cmm (157-399); Red Blood Count 4.63 10^6/uL (3.85-5.65); White Blood Count 1.00 10^3/uL (3.29-11.43)
[2025-08-01 08:51] LABS: Alanine Aminotransferase 78 U/L (0-41); Albumin Level 3.8 g/dL (3.5-5.2); Alkaline Phosphatase 61 U/L (40-130); Anion Gap 18.7 (5-19); Aspartate Amino Transferase 45 U/L (0-40); Blood Urea Nitrogen 18 mg/dL (6-20); Calcium 8.8 mg/dL (8.5-10.5); Carbon Dioxide 20 mmol/L (22-29); Chloride 100 mmol/L (98-107); Creatinine Clr Calc Pharmacy 141.0194; Globulin 4.0 g/dL (1.3-4.6); Glucose 123 mg/dL (65-115); Osmolality Calculated 281 mOsm/kg (285-295); Potassium 4.7 mmol/L (3.5-5.1); Sodium 134 mmol/L (136-145); Total Protein 7.8 g/dL (6.6-8.7)
[2025-08-08 08:42] LABS: Hematocrit 42.9 % (37-53); Hemoglobin 14.50 g/dL (11.27-16.99); Mean Corpuscular HGB Conc 33.8 g/dL (30-55); Mean Corpuscular Hemoglobin 31.7 pg (27-33); Mean Corpuscular Volume 93.9 fl (82-101); Nucleated Red Blood Cells % 0 %; Platelet Count 173 10^3/cmm (157-399); Red Blood Count 4.57 10^6/uL (3.85-5.65); White Blood Count 2.64 10^3/uL (3.29-11.43)
[2025-08-08 08:59] LABS: Alanine Aminotransferase 39 U/L (0-41); Albumin Level 4.2 g/dL (3.5-5.2); Alkaline Phosphatase 58 U/L (40-130); Anion Gap 14.5 (5-19); Aspartate Amino Transferase 25 U/L (0-40); Blood Urea Nitrogen 11 mg/dL (6-20); Calcium 9.1 mg/dL (8.5-10.5); Carbon Dioxide 26 mmol/L (22-29); Chloride 103 mmol/L (98-107); Creatinine Clr Calc Pharmacy 125.3506; Globulin 3.5 g/dL (1.3-4.6); Glucose 72 mg/dL (65-115); Osmolality Calculated 286 mOsm/kg (285-295); Potassium 4.5 mmol/L (3.5-5.1); Sodium 139 mmol/L (136-145); Total Protein 7.7 g/dL (6.6-8.7)
[2025-08-15 09:17] LABS: Hematocrit 43.6 % (37-53); Hemoglobin 14.70 g/dL (11.27-16.99); Mean Corpuscular HGB Conc 33.7 g/dL (30-55); Mean Corpuscular Hemoglobin 31.7 pg (27-33); Mean Corpuscular Volume 94.0 fl (82-101); Nucleated Red Blood Cells % 0 %; Platelet Count 138 10^3/cmm (157-399); Red Blood Count 4.64 10^6/uL (3.85-5.65); White Blood Count 2.67 10^3/uL (3.29-11.43)
[2025-08-15 09:36] LABS: Alanine Aminotransferase 26 U/L (0-41); Albumin Level 4.0 g/dL (3.5-5.2); Alkaline Phosphatase 78 U/L (40-130); Aspartate Amino Transferase 23 U/L (0-40); Blood Urea Nitrogen 8 mg/dL (6-20); Calcium 8.8 mg/dL (8.5-10.5); Carbon Dioxide 24 mmol/L (22-29); Chloride 102 mmol/L (98-107); Creatinine Clr Calc Pharmacy 163.8148; Globulin 3.2 g/dL (1.3-4.6); Glucose 118 mg/dL (65-115); Osmolality Calculated 287 mOsm/kg (285-295); Sodium 139 mmol/L (136-145); Total Protein 7.2 g/dL (6.6-8.7)
[2025-08-15 09:37] LABS: Anion Gap 17.2 (5-19); Potassium 4.2 mmol/L (3.5-5.1)
== END 2025-08-23 23:59 | disposition home or self-care (01) ==
PROVIDERS: Nurse Practitioner Family; PCP Electrodiagnostic Medicine; Visit Provider Internal Medicine Medical Oncology
DX: C91.40 Hairy cell leukemia not having achieved remission (principal)
CPT/HCPCS: 36415; 80053; 85025

== ENCOUNTER 2025-09-12 10:16 | Oncology outpatient (recurring) (ONCR) | payer SELFPAY ==
[2025-08-29 09:58] LABS: Hematocrit 43.2 % (37-53); Hemoglobin 14.80 g/dL (11.27-16.99); Mean Corpuscular HGB Conc 34.3 g/dL (30-55); Mean Corpuscular Hemoglobin 31.7 pg (27-33); Mean Corpuscular Volume 92.5 fl (82-101); Nucleated Red Blood Cells % 0.4 %; Platelet Count 113 10^3/cmm (157-399); Red Blood Count 4.67 10^6/uL (3.85-5.65); White Blood Count 6.68 10^3/uL (3.29-11.43)
[2025-08-29 10:24] LABS: Alanine Aminotransferase 21 U/L (0-41); Albumin Level 4.5 g/dL (3.5-5.2); Alkaline Phosphatase 56 U/L (40-130); Anion Gap 14.1 (5-19); Aspartate Amino Transferase 17 U/L (0-40); Blood Urea Nitrogen 10 mg/dL (6-20); Calcium 9.2 mg/dL (8.5-10.5); Carbon Dioxide 27 mmol/L (22-29); Chloride 101 mmol/L (98-107); Globulin 3.1 g/dL (1.3-4.6); Glucose 106 mg/dL (65-115); Osmolality Calculated 285 mOsm/kg (285-295); Potassium 4.1 mmol/L (3.5-5.1); Sodium 138 mmol/L (136-145); Total Protein 7.6 g/dL (6.6-8.7)
--- NOTE | 2025-09-07 09:45 | CT_ITS ---
WS: [id number] CT ABDOMEN AND PELVIS WITH CONTRAST HISTORY: restaging, history of hairy cell leukemia. Follow-up enlarged spleen. TECHNIQUE: Imaging performed of the abdomen and pelvis with IV contrast. Single phase imaging of the abdomen. Coronal and sagittal reformats are submitted. All CT scans at [facility] use at least one of these dose optimization techniques: automated exposure control; mA and/or kV adjustment per patient size (includes targeted exams where dose is matched to clinical indication); or iterative reconstruction. IV CONTRAST: Omnipaque 350; 100 mL IV. Oral contrast: Yes. DLP: 918.96 mGy.cm COMPARISON: 07/25/2025, 06/10/2025 Lower thorax: Lung bases are clear. Heart is normal size. No hiatal hernia. Liver/biliary system: Normal size with no intrahepatic dilatation. Gallbladder: Normal. No gallstones or wall thickening. No pericholecystic fluid. Pancreas: Normal size pancreas and pancreatic duct. No adjacent inflammation. Spleen: Mildly enlarged spleen measuring 16.8 cm in length. No splenic mass or heterogeneity. No adjacent fluid. Splenic vein is patent. Adrenal glands: Normal. Right kidney: Normal. Left kidney: Normal. Aorta: Normal. Lymphadenopathy: None. Free fluid: None. GI tract: No GI tract obstruction. Normal small bowel. Normal appendix. Moderate constipation. Abdominal wall: Tiny umbilical hernia contains fat only. Pelvis: No free fluid or adenopathy within the pelvis. Bones: Stable sclerotic focus in the LEFT femoral neck most consistent with a bone island. CT/CT abdomen pelvis w con* [id number] IMPRESSION: 1. Continued decrease in size of the spleen. Splenic length of 16.8 cm. Prior splenic length measurement on 06/10/2025, 26.8 cm. Length of the spleen on 025, 21.8 cm. 2. No ascites. 3. No mesenteric or retroperitoneal adenopathy.
[2025-09-07] MEDS: iohexol 350 mg/mL 500 mL Btl (per mL) PO (10:16)
[2025-09-07] MEDS: iohexol 350 mg/mL 500 mL Btl (per mL) IV (10:17)
[2025-09-12 10:33] LABS: Hematocrit 45.2 % (37-53); Hemoglobin 15.40 g/dL (11.27-16.99); Mean Corpuscular HGB Conc 34.1 g/dL (30-55); Mean Corpuscular Hemoglobin 31.5 pg (27-33); Mean Corpuscular Volume 92.4 fl (82-101); Nucleated Red Blood Cells % 0 %; Platelet Count 129 10^3/cmm (157-399); Red Blood Count 4.89 10^6/uL (3.85-5.65); White Blood Count 4.62 10^3/uL (3.29-11.43)
[2025-09-12 10:52] LABS: Alanine Aminotransferase 17 U/L (0-41); Albumin Level 4.6 g/dL (3.5-5.2); Alkaline Phosphatase 55 U/L (40-130); Anion Gap 13.3 (5-19); Aspartate Amino Transferase 17 U/L (0-40); Blood Urea Nitrogen 9 mg/dL (6-20); Calcium 9.2 mg/dL (8.5-10.5); Carbon Dioxide 28 mmol/L (22-29); Chloride 100 mmol/L (98-107); Creatinine Clr Calc Pharmacy 147.1955; Globulin 3.0 g/dL (1.3-4.6); Glucose 97 mg/dL (65-115); Osmolality Calculated 283 mOsm/kg (285-295); Potassium 4.3 mmol/L (3.5-5.1); Sodium 137 mmol/L (136-145); Total Protein 7.6 g/dL (6.6-8.7)
== END 2025-09-23 23:59 | disposition home or self-care (01) ==
PROVIDERS: Internal Medicine Medical Oncology; PCP Electrodiagnostic Medicine; Visit Provider Nurse Practitioner Family
DX: C91.40 Hairy cell leukemia not having achieved remission; Z53.9 Procedure and treatment not carried out, unspecified reason
CPT/HCPCS: 36415; 74177; 80053; 85025

== ENCOUNTER 2025-10-10 11:49 | Oncology outpatient (recurring) (ONCR) | payer SELFPAY ==
[2025-10-10 12:28] LABS: Hematocrit 45.7 % (37-53); Hemoglobin 15.70 g/dL (11.27-16.99); Mean Corpuscular HGB Conc 34.4 g/dL (30-55); Mean Corpuscular Hemoglobin 30.8 pg (27-33); Mean Corpuscular Volume 89.8 fl (82-101); Nucleated Red Blood Cells % 0 %; Platelet Count 133 10^3/cmm (157-399); Red Blood Count 5.09 10^6/uL (3.85-5.65); White Blood Count 4.36 10^3/uL (3.29-11.43)
[2025-10-10 12:48] LABS: Alanine Aminotransferase 27 U/L (0-41); Albumin Level 4.4 g/dL (3.5-5.2); Alkaline Phosphatase 52 U/L (40-130); Anion Gap 10.6 (5-19); Aspartate Amino Transferase 22 U/L (0-40); Blood Urea Nitrogen 12 mg/dL (6-20); Calcium 9.2 mg/dL (8.5-10.5); Carbon Dioxide 31 mmol/L (22-29); Chloride 102 mmol/L (98-107); Creatinine Clr Calc Pharmacy 148.6445; Globulin 2.7 g/dL (1.3-4.6); Glucose 99 mg/dL (65-115); Osmolality Calculated 288 mOsm/kg (285-295); Potassium 4.6 mmol/L (3.5-5.1); Sodium 139 mmol/L (136-145); Total Protein 7.1 g/dL (6.6-8.7)
[2025-10-11 14:40] LABS: Leukemia Profile (BBPL) See Report
== END 2025-10-23 23:59 | disposition home or self-care (01) ==
PROVIDERS: Internal Medicine Medical Oncology; PCP Electrodiagnostic Medicine; Visit Provider Nurse Practitioner Family
DX: C91.40 Hairy cell leukemia not having achieved remission (principal)
CPT/HCPCS: 36415; 80053; 83615; 85025; 88184; 88185

== ENCOUNTER 2025-11-08 08:43 | Oncology outpatient (recurring) (ONCR) | payer SELFPAY ==
[2025-11-08 08:59] LABS: Hematocrit 46.9 % (37-53); Hemoglobin 16.30 g/dL (11.27-16.99); Mean Corpuscular HGB Conc 34.8 g/dL (30-55); Mean Corpuscular Hemoglobin 31.0 pg (27-33); Mean Corpuscular Volume 89.2 fl (82-101); Nucleated Red Blood Cells % 0 %; Platelet Count 129 10^3/cmm (157-399); Red Blood Count 5.26 10^6/uL (3.85-5.65); White Blood Count 4.11 10^3/uL (3.29-11.43)
[2025-11-08 09:17] LABS: Alanine Aminotransferase 22 U/L (0-41); Albumin Level 4.6 g/dL (3.5-5.2); Alkaline Phosphatase 57 U/L (40-130); Anion Gap 11.4 (5-19); Aspartate Amino Transferase 20 U/L (0-40); Blood Urea Nitrogen 12 mg/dL (6-20); Calcium 9.2 mg/dL (8.5-10.5); Carbon Dioxide 32 mmol/L (22-29); Chloride 101 mmol/L (98-107); Globulin 2.8 g/dL (1.3-4.6); Glucose 100 mg/dL (65-115); Osmolality Calculated 290 mOsm/kg (285-295); Potassium 4.4 mmol/L (3.5-5.1); Sodium 140 mmol/L (136-145); Total Protein 7.4 g/dL (6.6-8.7)
== END 2025-11-23 23:59 | disposition home or self-care (01) ==
PROVIDERS: PCP Electrodiagnostic Medicine; Visit Provider Nurse Practitioner Family
DX: C91.40 Hairy cell leukemia not having achieved remission (principal)
CPT/HCPCS: 80053; 83615; 85025